=== PATIENT | male | born 1970 | race Hispanic/Latino ===

== ENCOUNTER 2018-01-04 22:48 | Inpatient (IN) | payer BC, OTHER ==
[~2018-01-04] VITALS: Ht 167.6 cm; Wt 117.2 kg
[~2018-01-04 22:48] MED LIST: LEVAQUIN500 MG PO; LEVEMIR 3M100 UNITS/ SQ; METFORMIN HCL500 MG PO; NORCO 7.5-3251 EACH PO; NOVOLOG MI100 UNIT/1 SQ; NOVOLOG100 UNIT/1 SQ; PRINIVIL10 MG PO
[2018-01-04] MEDS ORDERED: LANTUS 3ML100 UNITS/ (23:37)
[2018-01-04] MEDS ORDERED: LISINOPRIL20 MG PO (23:37)
[2018-01-04] MEDS ORDERED: FENOFIBRATE145 MG PO (23:37)
[2018-01-04] MEDS ORDERED: NOVOLOG100 UNITS1 SC (23:37)
[2018-01-04 23:54] LABS: BASOPHILS # (AUTO) 0.1 (0.0-0.1); BASOPHILS % 0.6 % (0.0-1.0); EOSINOPHILS # (AUTO) 0.3 (0.0-0.4); EOSINOPHILS % 2.4 % (0.0-6.0); HEMATOCRIT 31.7 % (38.2-49.6); HEMOGLOBIN 10.3 g/dL (14.0-18.0); LYMPHOCYTES # (AUTO) 2.1 (1.0-3.2); LYMPHOCYTES % 16.4 % (18.0-39.1); MEAN CORPUSCULAR HEMOGLOBIN 27.3 pg (28-32); MEAN CORPUSCULAR HGB CONC 32.5 g/dL (31-35); MEAN CORPUSCULAR VOLUME 84.1 fL (81-99); MONOCYTES % 7.7 % (4.4-11.3); NEUTROPHILS # (AUTO) 9.2 (2.1-6.9); NEUTROPHILS % 72.2 % (38.7-80.0); PLATELET COUNT 345 x10e3/uL (140-360); RED BLOOD COUNT 3.77 x10e6/uL (4.3-5.7); RED CELL DISTRIBUTION WIDTH 13.9 % (11.7-14.4)
[2018-01-05] VITALS (7 sets, daily range): BP systolic 117–142; BP diastolic 67–74
[2018-01-05 00:05] LABS: CLARITY,URINE CLEAR (CLEAR); COLOR,URINE YELLOW (YELLOW); LEUKOCYTE ESTERASE ,URINE TRACE (NEGATIVE); NITRITE,URINE NEGATIVE (NEGATIVE)
[2018-01-05 00:06] LABS: BILIRUBIN,URINE NEGATIVE (NEGATIVE); KETONES,URINE NEGATIVE (NEGATIVE); PROTEIN,URINE DIPSTICK NEGATIVE (NEGATIVE); URINE UROBILINOGEN 1 mg/dL (0.2 - 1)
[2018-01-05 00:09] LABS: ALBUMIN 3.4 g/dL (3.5-5.0); ALBUMIN/GLOBULIN RATIO 0.9 (0.8-2.0); ANION GAP 13.1 mmol/L (8-16); CALCIUM 9.4 mg/dL (8.4-10.2); CREATININE, SERUM 1.91 mg/dL (0.72-1.25); POTASSIUM 4.1 mmol/L (3.5-5.1)
[2018-01-05 00:10] LABS: AMYLASE 45 U/L (25-125); LIPASE 42 U/L (8-78)
[2018-01-05 00:27] LABS: BACTERIA,URINE RARE /HPF; EPITHELIAL CELLS,URINE RARE /LPF
--- NOTE | 2018-01-05 00:36 | Diagnostic Imaging Report ---
EXAM: CT Abdomen and Pelvis WITHOUT contrast INDICATION: Left flank pain. COMPARISON: None. TECHNIQUE: Abdomen and pelvis were scanned utilizing a multidetector helical scanner from the lung base to the pubic symphysis without administration of IV contrast. Absence of intravenous contrast decreases sensitivity for detection of focal lesions and vascular pathology. Coronal and sagittal reformations were obtained. Stone protocol is performed. IV CONTRAST: None. ORAL CONTRAST: Water RADIATION DOSE: Total DLP: 861.67 mGy*cm Estimated effective dose: (DLP x 0.015 x size factor) mSv COMPLICATIONS: None FINDINGS: LINES and TUBES: None. LOWER THORAX: Unremarkable HEPATOBILIARY: The liver is diffuse hypodense compared to the spleen, consistent with diffuse hepatic diffuse hepatic steatosis. No focal hepatic lesions. No biliary ductal dilation. GALLBLADDER: No radio-opaque stones or sludge. No wall thickening. SPLEEN: No splenomegaly. PANCREAS: No focal masses or ductal dilatation. ADRENALS: No adrenal nodules KIDNEYS/URETERS: Mild left hydroureteronephrosis No cystic or solid mass lesions. 1 cm oval stone in the proximal left ureter best seen and measured on series 401, image 65 and also seen on series 3, image 84 GI TRACT: No abnormal distention, wall thickening, or evidence of bowel obstruction. There are post surgical changes of appendectomy. PELVIC ORGANS/BLADDER: Unremarkable. LYMPH NODES: No lymphadenopathy. VESSELS: There is mild atherosclerotic disease in the aorta and major arterial branches. PERITONEUM / RETROPERITONEUM: No free air or fluid. BONES: Unremarkable. SOFT TISSUES: Unremarkable. IMPRESSION: 1. Obstructive 1 cm stone in the proximal left ureter resulting in left renal parenchymal swelling and mild hydroureteronephrosis 2. Diffuse hepatic steatosis. Signed by: Dr. Stanley Caruso M.D. on 01/05/2018 12:32 AM
[2018-01-05] MEDS ORDERED: HYDROMORPHONE 1MG/1ML INJ IV STA (00:42)
[2018-01-05] MEDS ORDERED: ONDANSETRON HCL INJ 2 MG/ML VIAL IV STA (00:42)
[2018-01-05] MEDS ORDERED: ONDANSETRON HCL INJ 2 MG/ML VIAL IV PRN (01:00)
[2018-01-05] MEDS ORDERED: DEXTROSE 50% SYRINGE 50 ML IV PRN (01:00)
[2018-01-05] MEDS: CEFTRIAXONE SOD 1 GM VIAL IV SCH (01:13)
[2018-01-05] MEDS: SODIUM CHLORIDE 0.9% 1000ML 1,000 ML IV SCH ×3 (01:13→21:39)
[2018-01-05 06:12] LABS: BASOPHILS # (AUTO) 0.1 (0.0-0.1); BASOPHILS % 0.5 % (0.0-1.0); EOSINOPHILS # (AUTO) 0.1 (0.0-0.4); EOSINOPHILS % 0.9 % (0.0-6.0); HEMATOCRIT 30.5 % (38.2-49.6); HEMOGLOBIN 9.9 g/dL (14.0-18.0); LYMPHOCYTES # (AUTO) 1.6 (1.0-3.2); LYMPHOCYTES % 13.7 % (18.0-39.1); MEAN CORPUSCULAR HEMOGLOBIN 27.4 pg (28-32); MEAN CORPUSCULAR HGB CONC 32.5 g/dL (31-35); MEAN CORPUSCULAR VOLUME 84.5 fL (81-99); MONOCYTES # (AUTO) 1.2 (0.2-0.8); MONOCYTES % 9.8 % (4.4-11.3); NEUTROPHILS # (AUTO) 8.7 (2.1-6.9); NEUTROPHILS % 74.6 % (38.7-80.0); PLATELET COUNT 309 x10e3/uL (140-360); RED BLOOD COUNT 3.61 x10e6/uL (4.3-5.7); RED CELL DISTRIBUTION WIDTH 13.8 % (11.7-14.4)
[2018-01-05 06:35] LABS: B-TYPE NATRIURETIC PEPTIDE2 25.2 pg/mL (0-100)
[2018-01-05 06:37] LABS: ANION GAP 13.1 mmol/L (8-16); CHOL/HDL RATIO 4.8 (3.9-4.7); CREATININE, SERUM 1.64 mg/dL (0.72-1.25); MAGNESIUM 1.7 MG/DL (1.3-2.1); POTASSIUM 4.1 mmol/L (3.5-5.1)
[2018-01-05 07:06] LABS: FREE T4 (FREE THYROXINE) 1.06 ng/dL (0.9-1.8); THYROID STIMULATING HORMONE 1.113 uIU/mL (0.350-4.940)
[2018-01-05] MEDS ORDERED: INSULIN REGULAR, HUMAN 100 UNIT/1 ML 3ML VIAL SQ SCH (07:30)
[2018-01-05] MEDS ORDERED: HYDRALAZINE HCL 20 MG/ML VIAL IV PRN (07:30)
[2018-01-05] MEDS: INSULIN LISPRO 100 UNIT/1 ML 3ML VIAL SQ SCH ×4 (07:30→21:36)
[2018-01-05] MEDS ORDERED: HYDROCODONE/APAP 5MG-325MG TAB PO PRN (07:30)
[2018-01-05] MEDS ORDERED: ACETAMINOPHEN 325 MG TAB PO PRN (07:30)
--- NOTE | 2018-01-05 07:40 | Consultation ---
DATE OF CONSULTATION: January 05, 2018 UROLOGY CONSULTATION REASON FOR CONSULTATION: Renal colic. HISTORY OF PRESENT ILLNESS: Arley Gonzales is a 47-year-old man without any urological history, except for having had a circumcision in the early . The patient denies previous hematuria, dysuria, urinary tract infection or urolithiasis. Denies any urological problems beyond his circumcision. He had severe right-sided flank pain and reported to the emergency room. He denies nausea, vomiting, hematuria, and dysuria. He denies any fever. PAST MEDICAL AND SURGICAL HISTORY 1. Status post appendectomy. 2. Status post circumcision. 3. Diabetes mellitus. 4. Hypertension. CURRENT MEDICATIONS: Please refer to the MAR. ALLERGIES: NONE KNOWN. SOCIAL HISTORY: The patient denies smoking, ethanol or drug use. The patient works in technical support. FAMILY HISTORY: Noncontributory to the active urological problems. REVIEW OF SYSTEMS: As discussed above in the history of present illness and past medical history, otherwise negative for all systems. PHYSICAL EXAMINATION GENERAL: A healthy-appearing, 47-year-old man lying in bed in no apparent distress. VITAL SIGNS: He is currently afebrile, and the vital signs are currently stable. ABDOMEN: Soft and nondistended. Currently nontender, but the patient has been medicated. Without costovertebral angle tenderness. Kidneys are not palpable without hepatosplenomegaly. No obvious evidence of hernia. GENITOURINARY: Testes are descended bilaterally. Testes are nontender and are bilaterally palpably normal. The patient has a normal circumcised male phallus with normal meatus without any lesions. RECTAL: Digital rectal examination is deferred at the present time. For the remaining physical examination systems, please refer to the admission history and physical on the chart. LABORATORY STUDIES: CT scan of the abdomen and pelvis reveals a 1-cm obstructing proximal ureteral stone with hydronephrosis. No additional stones were noted by the radiologist. White blood cell count is elevated at 11,700, hemoglobin 9.9, platelets 309,000. The patient's creatinine upon admission was 1.91. It is better today at 1.64. His hemoglobin A1c is 7.6. Magnesium is 1.7. Calcium is 9. Urinalysis is significant for 6-10 RBCs and 6-10 WBCs. ASSESSMENT 1. Leukocytosis. 2. Anemia. 3. Acute renal failure, which is improving. 4. Microhematuria. 5. Possible urinary tract infection. 6. Renal colic. 7. Left ureterolithiasis. 8. Left hydroureteronephrosis. PLAN 1. Urine culture and sensitivity on ER urine. 2. IV antibiotics. 3. Hydration. 4. Will post the patient for cystoscopy and stent probably tomorrow, which will hopefully give him a chance to move the stone lower so that we may manage it. Thank you very much for involving us in the care of your patient. We will be happy to follow him along with you, as well as an outpatient. Job#: [id number] MH cc: MATILDE OTERO MD MTDD
[2018-01-05] MEDS: LISINOPRIL 20 MG TAB PO SCH (08:31)
[2018-01-05] MEDS: FENOFIBRATE 145 MG TAB PO SCH (08:32)
[2018-01-05] MEDS: HYDROMORPHONE 1MG/1ML INJ IV PRN ×2 (11:31→22:07)
[2018-01-06] VITALS (8 sets, daily range): BP systolic 112–152; BP diastolic 65–91
[2018-01-06] MEDS: CEFTRIAXONE SOD 1 GM VIAL IV SCH ×2 (00:05→23:20)
[2018-01-06 05:25] LABS: BASOPHILS # (AUTO) 0.1 (0.0-0.1); BASOPHILS % 0.6 % (0.0-1.0); EOSINOPHILS # (AUTO) 0.2 (0.0-0.4); HEMATOCRIT 29.3 % (38.2-49.6); HEMOGLOBIN 9.5 g/dL (14.0-18.0); LYMPHOCYTES # (AUTO) 1.8 (1.0-3.2); LYMPHOCYTES % 17.9 % (18.0-39.1); MEAN CORPUSCULAR HEMOGLOBIN 27.1 pg (28-32); MEAN CORPUSCULAR HGB CONC 32.4 g/dL (31-35); MEAN CORPUSCULAR VOLUME 83.7 fL (81-99); MONOCYTES % 9.2 % (4.4-11.3); NEUTROPHILS # (AUTO) 7.2 (2.1-6.9); NEUTROPHILS % 69.8 % (38.7-80.0); PLATELET COUNT 291 x10e3/uL (140-360); RED CELL DISTRIBUTION WIDTH 13.8 % (11.7-14.4)
[2018-01-06 05:40] LABS: ALBUMIN/GLOBULIN RATIO 0.9 (0.8-2.0); ANION GAP 12.7 mmol/L (8-16); CALCIUM 8.7 mg/dL (8.4-10.2); CREATININE, SERUM 1.77 mg/dL (0.72-1.25); POTASSIUM 4.7 mmol/L (3.5-5.1)
[2018-01-06 05:41] LABS: MAGNESIUM 1.8 MG/DL (1.3-2.1)
[2018-01-06 06:01] LABS: FERRITIN 154.12 ng/mL (21.81-274.66)
[2018-01-06] MEDS: SODIUM CHLORIDE 0.9% 1000ML 1,000 ML IV SCH ×2 (06:54→21:52)
[2018-01-06] MEDS: INSULIN LISPRO 100 UNIT/1 ML 3ML VIAL SQ SCH ×4 (07:30→21:52)
[2018-01-06] MEDS: FENOFIBRATE 145 MG TAB PO SCH (09:00)
[2018-01-06] MEDS: LISINOPRIL 20 MG TAB PO SCH (09:00)
[2018-01-06] MEDS ORDERED: IOPAMIDOL 610MG/1ML 300 MG/ML VIAL IV ONE (11:53)
[2018-01-06] MEDS ORDERED: BELLADONNA/OPIUM 30 MG SUPP RC ONE (11:53)
[2018-01-06] MEDS ORDERED: ACETAMINOPHEN/CODEINE 300MG - 30MG TAB PO PRN (12:45)
[2018-01-06] MEDS: PHENAZOPYRIDINE HCL 100 MG TAB PO SCH ×2 (13:00→18:00)
[2018-01-06] MEDS ORDERED: FENTANYL CITRATE/PF 100MCG/2 ML INJ ONE (16:53)
[2018-01-06] MEDS ORDERED: MIDAZOLAM HCL 2 MG/2 ML VIAL ONE (16:53)
[2018-01-06] MEDS: OXYBUTYNIN CHLORIDE 5 MG TAB PO SCH (17:00)
[2018-01-06] MEDS ORDERED: LIDOCAINE HCL 2% LOCAL INJ 5 ML SDV VIAL INJ ONE (18:35)
[2018-01-06] MEDS ORDERED: PROPOFOL IV EMULSION 10 MG/ML 20 ML VIAL ONE (18:35)
[2018-01-06] MEDS ORDERED: SEVOFLURANE INHAL SOLN 250 ML PEN BTL ONE (18:35)
[2018-01-06] MEDS ORDERED: DEXAMETHASONE SOD PHOS INJ 4 MG/ML VIAL ONE (18:35)
[2018-01-06] MEDS ORDERED: ONDANSETRON HCL INJ 2 MG/ML VIAL ONE (18:35)
[2018-01-07] VITALS: BP 117/58
[2018-01-07 03:03] LABS: BASOPHILS # (AUTO) 0.1 (0.0-0.1); BASOPHILS % 0.5 % (0.0-1.0); EOSINOPHILS % 0.3 % (0.0-6.0); HEMATOCRIT 27.7 % (38.2-49.6); HEMOGLOBIN 9.3 g/dL (14.0-18.0); LYMPHOCYTES # (AUTO) 1.4 (1.0-3.2); LYMPHOCYTES % 13.7 % (18.0-39.1); MEAN CORPUSCULAR HEMOGLOBIN 27.4 pg (28-32); MEAN CORPUSCULAR HGB CONC 33.6 g/dL (31-35); MEAN CORPUSCULAR VOLUME 81.7 fL (81-99); MONOCYTES # (AUTO) 0.8 (0.2-0.8); MONOCYTES % 8.1 % (4.4-11.3); NEUTROPHILS % 76.6 % (38.7-80.0); PLATELET COUNT 329 x10e3/uL (140-360); RED BLOOD COUNT 3.39 x10e6/uL (4.3-5.7); RED CELL DISTRIBUTION WIDTH 13.6 % (11.7-14.4)
[2018-01-07 03:22] LABS: ANION GAP 12.4 mmol/L (8-16); CALCIUM 9.1 mg/dL (8.4-10.2); CREATININE, SERUM 1.45 mg/dL (0.72-1.25); MAGNESIUM 1.9 MG/DL (1.3-2.1); POTASSIUM 4.4 mmol/L (3.5-5.1)
[2018-01-07 04:00] VITALS: BP 144/70
[2018-01-07] MEDS: SODIUM CHLORIDE 0.9% 1000ML 1,000 ML IV SCH (07:13)
[2018-01-07] MEDS: INSULIN LISPRO 100 UNIT/1 ML 3ML VIAL SQ SCH ×2 (07:30→11:30)
[2018-01-07 07:35] VITALS: BP 150/78
[2018-01-07] MEDS ORDERED: TYLENOL # 31 EA PO (08:45)
[2018-01-07] MEDS ORDERED: DITROPAN PO (08:45)
[2018-01-07] MEDS ORDERED: PYRIDIUM100 MG PO (08:45)
[2018-01-07] MEDS: FENOFIBRATE 145 MG TAB PO SCH (09:00)
[2018-01-07] MEDS: LISINOPRIL 20 MG TAB PO SCH (09:00)
[2018-01-07] MEDS: OXYBUTYNIN CHLORIDE 5 MG TAB PO SCH (09:00)
[2018-01-07] MEDS: PHENAZOPYRIDINE HCL 100 MG TAB PO SCH ×2 (09:00→12:41)
[2018-01-07 13:45] VITALS: BP 152/76
--- NOTE | 2018-01-07 13:49 | Discharge Summary ---
ADMISSION DIAGNOSES 1. Urinary tract infection with ureterolithiasis. 2. Hypertension. 3. Type 2 diabetes. 4. Hyperlipidemia. 5. Acute kidney injury versus chronic kidney disease anemia. DISCHARGE DIAGNOSES 1. Urinary tract infection with ureterolithiasis. 2. Hypertension. 3. Type 2 diabetes. 4. Hyperlipidemia. 5. Acute kidney injury versus chronic kidney disease anemia. 6. Rule out urinary tract infection. HISTORY: Patient has a history of pancreatitis, type 2 diabetes, hypertension, hyperlipidemia and surgical history of appendectomy. HOSPITAL COURSE: This 47-year-old male complained of intermittent left flank pain that began last Thursday. By Thursday he had nausea and subjective fever. Thursday all symptoms resolved. Thursday the symptoms returned so he came to the ER. He denies dysuria, hematuria, and CVA tenderness. Upon admission patient was started on IV Rocephin, urology consulted. Home meds resumed for hypertension and hyperlipidemia. His metformin was held and sliding scale insulin began. His A1C was 7.6. On admission his creatinine was 1.91, his GFR was 38, BUN of 29. CT of the abdomen on admission showed obstructive 1 cm stone in the proximal left ureter resulting in left renal parenchymal swelling and mild hydroureteronephrosis, hepatic steatosis. By discharge urine culture was found to be negative. Per urology, patient had a cysto with retrograde, stone manipulation and left stent insertion on 01/06. Patient tolerated procedure well. On day of discharge, WBC 10.41, hemoglobin 9.3, hematocrit 27.7, sodium 137, potassium 4.4, BUN 25, creatinine 1.45, GFR 52. Patient afebrile. Vital signs stable. He will discharge home and follow up with urology in 3 weeks. He will discharge with Tylenol #3, Pyridium and Ditropan per urology recommendation. He will resume home medications. Patient understands discharge instructions and agrees to discharge. Dictated by: Sandra Silverio NP. EVANGELINA LUX MD Job#: [id number] DG
--- NOTE | 2018-03-11 00:36 | Operative Report ---
DATE OF PROCEDURE: January 06, 2018 PREOPERATIVE DIAGNOSES 1. Left hydronephrosis due to stone. 2. Microscopic hematuria. 3. Urinary tract infection. POSTOPERATIVE DIAGNOSES 1. Left hydronephrosis due to stone. 2. Microscopic hematuria. 3. Urinary tract infection. OPERATIONS PERFORMED 1. Cystourethroscopy with bilateral ureteral catheterization and retrograde ureteropyelography (separate procedure performed for the urinary tract infections). 2. Interpretation of retrograde ureteropyelography. 3. Supervision of fluoroscopy. No radiologist present. 4. Cystourethroscopy with insertion of left indwelling ureteral stent (separate procedure performed for the diagnosis of the hydronephrosis). ANESTHESIA: General. COMPLICATIONS: None. CLINICAL SUMMARY: Arley Gonzales is a 47-year-old man with obstructive uropathy. He is brought for the above procedures. He is aware of the risks of bleeding, infection, injury to adjacent structures, need for additional procedures and elected to proceed. OPERATIVE PROCEDURE IN DETAIL: Informed consent was verified. Arley Gonzales was properly identified, taken to the operating room, placed on the cystoscopy table in supine position. Anesthesia was uneventfully begun. The patient was then carefully and gently repositioned in the dorsal lithotomy position with all pressure points well padded. His genitalia were prepared and draped in usual sterile fashion. The 22.5-Azeri cystoscope sheath with a visual obturator in place was atraumatically inserted into the patient's urethra. It was guided down the relatively unremarkable distal urethra through mildly narrow intersphincteric region through the prostate bed which was significant for early BPH with visual obstruction of the median bar. Panendoscopy of the urinary bladder revealed mild trabeculations; but no tumors, no stones and no diverticula. Normally positioned and configured ureteral orifices were identified. Ureteral catheter was used to cannulate each ureter and retrograde ureteropyelograms were performed. INTERPRETATION OF RETROGRADE URETEROPYELOGRAPHY: Contrast was instilled in retrograde fashion bilaterally. There were no tumors, no stones and no diverticula. Unobstructed drainage was observed fluoroscopically on the right hand side. The left hand side exhibited a filling defect in the proximal portion of the ureter. This correlates to the stone noted on CT. With cystoscopic and fluoroscopic guidance, a left-sided indwelling ureteral stent was then placed with a coil placed in the kidney as well as the patient's bladder. The retaining suture was cut short. The patient's bladder was drained. The cystoscope was withdrawn. The patient was uneventfully reversed from anesthesia and taken to the recovery room in stable condition. Explicit postoperative instructions were given. We will plan on ensuring the patient is okay prior to discharge and then we will bring the patient back to the operating room electively as an outpatient to remove his stent, perform left ureteroscopy with laser of stone. Job#: [id number] GE cc:MATILDE OTERO MD
== END 2018-01-07 14:55 | disposition home or self-care (01) | DRG 669 ==
LOC: ER 22:48 → ERHOLD 01-05 01:14 → MED/SURG2 01-05 01:29
PROVIDERS: ADMIT Internal Medicine; ATTEND Internal Medicine
PROC: 0TC78ZZ Extirpation of Matter from Left Ureter, Via Natural or Artificial Opening Endoscopic (ICD-10-PCS; principal; 2018-01-05)
PROC: 0T778DZ Dilation of Left Ureter with Intraluminal Device, Via Natural or Artificial Opening Endoscopic (ICD-10-PCS; 2018-01-05)
PROC: BT141ZZ Fluoroscopy of Kidneys, Ureters and Bladder using Low Osmolar Contrast (ICD-10-PCS; 2018-01-05)
DX: N13.6 Pyonephrosis (principal); N20.1 Calculus of ureter; N17.9 Acute kidney failure, unspecified; N39.0 Urinary tract infection, site not specified; R31.29 Other microscopic hematuria; N18.9 Chronic kidney disease, unspecified; E83.42 Hypomagnesemia; I12.9 Hypertensive chronic kidney disease with stage 1 through stage 4 chronic kidney disease, or unspecified chronic kidney disease; E78.5 Hyperlipidemia, unspecified; Z79.4 Long term (current) use of insulin; K76.0 Fatty (change of) liver, not elsewhere classified; E11.22 Type 2 diabetes mellitus with diabetic chronic kidney disease; D64.9 Anemia, unspecified
CPT/HCPCS: 36415; 74176; 74420; 80048; 80053; 80061; 81001; 82150; 82607; 82728; 82746; 82948; 83036; 83540; 83690; 83735; 83880; 83970; 84439; 84443; 84466; 84550; 85025; 87086; 96374; 96375; 99284; C2617; J0696; J1100; J1170; J2001; J2250; J2405; J7030

== ENCOUNTER 2018-10-22 07:31 | Inpatient (IN) | payer OTHER ==
[~2018-10-22] VITALS: Ht 167.6 cm; Wt 115.7 kg
[~2018-10-22 07:31] MED LIST changes: +DITROPAN PO; +FENOFIBRATE145 MG PO; +LANTUS 3ML100 UNITS/; +LISINOPRIL20 MG PO; +NOVOLOG100 UNITS1 SC; +PYRIDIUM100 MG PO; +TYLENOL # 31 EA PO
[2018-10-22] MEDS ORDERED: KETOROLAC TROMETHAMINE 30 MG/ML VIAL IV NR (08:00)
[2018-10-22] MEDS ORDERED: SODIUM CHLORIDE 0.9% 1000ML 1,000 ML IV ONE (08:00)
[2018-10-22] MEDS ORDERED: DICYCLOMINE HCL 20 MG/2 ML VIAL IM ONE (08:00)
[2018-10-22] MEDS ORDERED: METOCLOPRAMIDE HCL 10 MG/2ML VIAL IV NR (08:00)
[2018-10-22 08:10] LABS: CLARITY,URINE CLEAR (CLEAR); COLOR,URINE YELLOW (YELLOW)
[2018-10-22 08:11] LABS: BILIRUBIN,URINE NEGATIVE (NEGATIVE); KETONES,URINE NEGATIVE (NEGATIVE); LEUKOCYTE ESTERASE ,URINE NEGATIVE (NEGATIVE); NITRITE,URINE NEGATIVE (NEGATIVE); PROTEIN,URINE DIPSTICK 2+ (NEGATIVE); URINE UROBILINOGEN 8 mg/dL (0.2 - 1)
[2018-10-22 08:17] LABS: BASOPHILS # (AUTO) 0.1 (0.0-0.1); BASOPHILS % 0.5 % (0.0-1.0); EOSINOPHILS # (AUTO) 0.1 (0.0-0.4); EOSINOPHILS % 1.3 % (0.0-6.0); HEMATOCRIT 36.3 % (38.2-49.6); HEMOGLOBIN 11.8 g/dL (14.0-18.0); LYMPHOCYTES # (AUTO) 1.2 (1.0-3.2); MEAN CORPUSCULAR HEMOGLOBIN 27.1 pg (28-32); MEAN CORPUSCULAR HGB CONC 32.5 g/dL (31-35); MEAN CORPUSCULAR VOLUME 83.3 fL (81-99); NEUTROPHILS # (AUTO) 8.6 (2.1-6.9); NEUTROPHILS % 77.4 % (38.7-80.0); PLATELET COUNT 301 x10e3/uL (140-360); RED BLOOD COUNT 4.36 x10e6/uL (4.3-5.7); RED CELL DISTRIBUTION WIDTH 14.1 % (11.7-14.4)
[2018-10-22 08:31] LABS: BACTERIA,URINE RARE /HPF; EPITHELIAL CELLS,URINE RARE /LPF
[2018-10-22 08:38] LABS: ALANINE AMINOTRANSFERASE 294 IU/L (0-55); ALBUMIN 2.9 g/dL (3.5-5.0); ALBUMIN/GLOBULIN RATIO 0.6 (0.8-2.0); ALKALINE PHOSPHATASE 302 IU/L (40-150); ANION GAP 13.1 mmol/L (8-16); BLOOD UREA NITROGEN 17 mg/dL (7-26); BUN/CREATININE RATIO 20 (6-25); CALCIUM 9.3 mg/dL (8.4-10.2); CARBON DIOXIDE 26 mmol/L (22-29); CHLORIDE 101 mmol/L (98-107); CREATININE, SERUM 0.84 mg/dL (0.72-1.25); EST GLOMERULAR FILTRATION RATE > 60 ML/MIN (60-); GLUCOSE 206 mg/dL (74-118); POTASSIUM 4.1 mmol/L (3.5-5.1); SODIUM 136 mmol/L (136-145)
--- NOTE | 2018-10-22 08:52 | Diagnostic Imaging Report ---
EXAM: CT Abdomen and Pelvis WITHOUT contrast INDICATION: Right flank pain. COMPARISON: CT abdomen/pelvis 01/04/2018. TECHNIQUE: Abdomen and pelvis were scanned utilizing a multidetector helical scanner from the lung base to the pubic symphysis without administration of IV contrast. Absence of intravenous contrast decreases sensitivity for detection of focal lesions and vascular pathology. Coronal and sagittal reformations were obtained. Stone protocol is performed. IV CONTRAST: None. ORAL CONTRAST: Water RADIATION DOSE: Total DLP: 839.1 mGy*cm Dose modulation, iterative reconstruction, and/or weight based adjustment of the mA/kV was utilized to reduce the radiation dose to as low as reasonably achievable. COMPLICATIONS: None FINDINGS: LINES and TUBES: None. LOWER THORAX: Extensive coronary atherosclerosis (left main, LAD). HEPATOBILIARY: There is mild hepatic steatosis. No focal hepatic lesions. No biliary ductal dilation. GALLBLADDER: Mildly thick-walled with pericholecystic inflammatory changes. No evidence of radiopaque stone. SPLEEN: No splenomegaly. PANCREAS: No focal masses or ductal dilatation. ADRENALS: No adrenal nodules KIDNEYS/URETERS: Previously noted left ureteral stone is no longer present. Interval resolution of left-sided hydronephrosis. No evidence of right-sided hydronephrosis. No evidence of renal stone or mass. GI TRACT: There is mild bowel wall thickening at the hepatic flexure, likely reactive from surrounding gallbladder inflammatory changes. No abnormal distention or evidence of bowel obstruction. Status post appendectomy. PELVIC ORGANS/BLADDER: Unremarkable. LYMPH NODES: No lymphadenopathy. VESSELS: There is mild atherosclerotic disease in the aorta and major arterial branches. PERITONEUM / RETROPERITONEUM: No free air or fluid. No evidence of drainable fluid collection. BONES: Unremarkable. SOFT TISSUES: Unremarkable. IMPRESSION: CT findings suspicious for acute cholecystitis. Right upper quadrant ultrasound suggested for further evaluation. No evidence of renal stone. Mild hepatic steatosis. Extensive coronary atherosclerosis. Signed by: Dr. Shobha Pickard MD on 10/22/2018 8:49 AM
[2018-10-22] MEDS ORDERED: MORPHINE SULFATE INJ 4 MG/ML INJ 1ML IV NR (10:15)
[2018-10-22] MEDS ORDERED: PIPER-TAZ 3.375 GM 50 ML IV ONE (10:15)
[2018-10-22] MEDS ORDERED: SODIUM CHLORIDE 0.9% 1000ML 1,000 ML IV SCH (10:15)
[2018-10-22] MEDS ORDERED: MORPHINE SULFATE INJ 4 MG/ML INJ 1ML IV PRN (10:15)
--- NOTE | 2018-10-22 10:23 | Diagnostic Imaging Report ---
EXAM: Right upper quadrant abdominal ultrasound INDICATION: Cholecystitis. COMPARISON: None. TECHNIQUE: Transverse and longitudinal images of the right upper quadrant abdomen were obtained FINDINGS: Somewhat limited exam due to overlying bowel gas. Liver: Size: 18.0 cm in the right midclavicular line, normal Appearance: Increased echogenicity, smooth contour Mass: No focal masses Gallbladder: Numerous gallstones. No distention, pericholecystic fluid, wall thickening, or reported sonographic Tol[place]'s sign. Gallbladder wall measures 0.3 cm. Bile Ducts: Intrahepatic Ducts: No dilatation Extrahepatic Ducts: Common bile duct measures 0.6 cm, no dilatation Pancreas: Not visualized due to overlying bowel gas. Kidney: The right kidney measures 12.6 cm without evidence of hydronephrosis or stone. Vessels: Aorta: Not well visualized due to overlying bowel gas. Inferior Vena Cava: Visualized portions are normal Main Portal Vein: 1.1 cm, normal size with hepatopetal flow. Free Fluid: No evidence of ascites. IMPRESSION: Somewhat limited study due to overlying bowel gas. Cholelithiasis without specific sonographic evidence of cholecystitis. However, based on the CT appearance, early cholecystitis is suspected. CBD measures at the upper limit of normal at 0.6 cm. No sonographic evidence of intrahepatic biliary ductal dilatation. Suggest correlation with LFTs. Choledocholithiasis is considered less likely but if LFTs are suggestive of obstructive process, MRCP may be considered. Hepatomegaly and hepatic steatosis. Signed by: Dr. Shobha Pickard MD on 10/22/2018 10:19 AM
[2018-10-22] MEDS ORDERED: CRESTOR20 MG PO (10:27)
[2018-10-22] MEDS ORDERED: BASAGLAR SQ (10:27)
[2018-10-22] MEDS ORDERED: DICYCLOMINE HCL 20 MG/2 ML VIAL IM PRN (10:45)
[2018-10-22] MEDS ORDERED: DEXTROSE 50% SYRINGE 50 ML IV PRN ×2 (11:00→17:30)
[2018-10-22] MEDS: PIPER-TAZ 3.375 GM 50 ML IV SCH ×2 (11:03→21:27)
[2018-10-22] MEDS: SODIUM CHLORIDE 0.9% 1000ML 1,000 ML IV SCH ×2 (11:04→18:35)
--- NOTE | 2018-10-22 16:34 | Diagnostic Imaging Report ---
HEPATOBILIARY SCAN INDICATION: Abdominal pain Report: Following the administration of 6.1 mCi of Tc-99m mebrofenin, dynamic images of the abdomen in the anterior projection were obtained through 60 minutes. Perfusion of the liver is normal. Extraction of tracer from the blood pool by the liver parenchyma is normal. No tracer appears within the biliary tract during the 60 minutes of imaging. Impression: Scan evidence of cholestasis. Cannot assess gallbladder filling with absence of tracer in the biliary tract. Signed by: Dr. Carolyn Zavala M.D. on 10/22/2018 4:30 PM
--- NOTE | 2018-10-22 16:51 | NUR ---
Received patient from [employer] via wheelchair. AAOX4 to time, person, place, situation. Respirations even and unlabored. Oriented patient and to room. Instructed to use call light for assistance. Voiced understanding. Will continue to monitor.
[2018-10-22 17:10] VITALS: BP 190/88
[2018-10-22] MEDS: METOCLOPRAMIDE HCL 10 MG/2ML VIAL IV PRN ×2 (17:10→23:16)
[2018-10-22 17:20] VITALS: BP 190/88
--- NOTE | 2018-10-22 17:20 | NUR ---
Moriah Saavedra at bedside. Aware of BP 190/88 and of HIDA scan results
[2018-10-22] MEDS ORDERED: PROPOFOL IV EMULSION 10 MG/ML 20 ML VIAL ONE (17:21)
[2018-10-22] MEDS ORDERED: LIDOCAINE HCL 2% LOCAL INJ 5 ML SDV VIAL INJ ONE (17:21)
[2018-10-22] MEDS ORDERED: NEOSTIGMINE 5 MG/5ML SYR ONE (17:21)
[2018-10-22] MEDS ORDERED: GLYCOPYRROLATE INJ 1MG/ 5 ML SYR ONE (17:21)
[2018-10-22] MEDS ORDERED: SUCCINYLCHOLINE 200 MG/10 ML SYR ONE (17:21)
[2018-10-22] MEDS ORDERED: DESFLURANE 240 ML BTL INH ONE (17:21)
[2018-10-22] MEDS ORDERED: ONDANSETRON HCL INJ 2MG/ML 2ML 2 MG/ML VIAL ONE (17:21)
[2018-10-22] MEDS ORDERED: ROCURONIUM BROMIDE 10 MG/ML 5ML VIAL ONE (17:21)
[2018-10-22] MEDS ORDERED: HYDROMORPHONE 1MG/1ML INJ IV PRN (17:30)
[2018-10-22] MEDS: HYDROMORPHONE 2MG/ML 2 MG/ML ML IV PRN ×2 (18:12→21:51)
[2018-10-22] MEDS: HYDRALAZINE HCL 20 MG/ML VIAL IV PRN (18:13)
--- NOTE | 2018-10-22 19:00 | NUR ---
Report given to oncoming nurse. Resting in bed. No s/s of acute distress noted.
[2018-10-22] MEDS: ONDANSETRON HCL INJ 2MG/ML 2ML 2 MG/ML VIAL IV PRN (19:25)
--- NOTE | 2018-10-22 19:25 | NUR ---
Patient received sitting up in bed. at bedside. AAO x 4. Patient had no complaints of pain. Respirations even and non-labored. Bed locked and in lowest position. Bed rails up x 2. Patient instructed to call for assistance when needed. Call light within reach.
[2018-10-22 19:36] VITALS: BP 118/77
[2018-10-22 19:38] VITALS: BP 164/90
--- NOTE | 2018-10-22 20:31 | NUR ---
Patient informed about recommended surgical procedure----Laparoscopic possible open cholecystectomy. Patient instructed about "NPO" status. Patient verbalized understanding and voluntarily signed "Disclosure and Consent "form.
[2018-10-22] MEDS: INSULIN REGULAR, HUMAN 100 UNIT/1 ML 3ML VIAL SQ SCH (21:00)
[2018-10-23] VITALS (8 sets, daily range): BP systolic 132–199; BP diastolic 69–93
[2018-10-23] MEDS: HYDRALAZINE HCL 20 MG/ML VIAL IV PRN (00:22)
[2018-10-23] MEDS: SODIUM CHLORIDE 0.9% 1000ML 1,000 ML IV SCH ×3 (00:35→12:54)
--- NOTE | 2018-10-23 01:35 | Consultation ---
DATE OF CONSULTATION: 10/22/2018 CHIEF COMPLAINT: Abdominal pain and vomiting. HISTORY OF PRESENT ILLNESS: The patient is a 48-year-old male with progressive abdominal pain in epigastric area for the last 4 days, worsened in the last 24 hours with vomiting. He denies fever, chills, or diarrhea. No past episodes of similar nature. PAST MEDICAL HISTORY: Positive for metabolic syndrome with diabetes, hypertension, hyperlipidemia, and history of renal stones. SURGICAL HISTORY: Positive for appendectomy and stent in the kidney. ALLERGIES: HE HAS NO DRUG ALLERGIES. SOCIAL HABITS: He denies smoking or alcohol abuse. REVIEW OF SYSTEMS: No chest pain or shortness of breath. PHYSICAL EXAMINATION: VITAL SIGNS: Stable, afebrile. GENERAL: He is awake and alert, in moderate to severe discomfort. HEENT: Sclerae anicteric. NECK: Supple. LUNGS: Clear. HEART: Regular rate and rhythm. ABDOMEN: Soft with some guarding in the epigastrium without any rebound tenderness. EXTREMITIES: Without cyanosis, edema. LABORATORY DATA: His creatinine is 0.8. Liver function tests, bilirubin of 1, AST of 476, alkaline phosphatase of 300, lipase 32. The white cell count is 11, hemoglobin of 12. Ultrasound showed gallstone. CT scan showed the same with evidence of cholecystitis. HIDA scan showed nonuptake in the liver, suggestive of cholestasis. MRCP is pending. ASSESSMENT: Cholelithiasis and probable cholecystitis. PLAN: Laparoscopic cholecystectomy indicated once bile duct clearance has been confirmed by MRCP. Faustino Major MD DNL/MODL /[id number]
--- NOTE | 2018-10-23 01:43 | Diagnostic Imaging Report ---
EXAM: Magnetic Resonance Cholangiopancreatography (M.R.C.P.) INDICATION: ^Cholecystitis, Transaminitis COMPARISON: Gallbladder ultrasound 10/22/2018. CT abdomen and pelvis 10/22/2018. TECHNIQUE: Multiplanar, multisequence MRCP was performed, with sequences including axial dual echo and T2 and coronal 2-D SSFSE and [place]iesta, coronal turbo spin-echo T1-weighted scans, [facility] MRCP scans, coronal spin, coronal MPR 2, SMRCP 3D HR, [facility] MRCP [place]. Thin and thick/MRCP sequences with rotational images performed by the technologist at the scan workstation. IV Contrast: None Oral Contrast: None Medications: None COMPLICATIONS: None FINDINGS: LOWER THORAX: Unremarkable. HEPATOBILIARY: No focal hepatic lesions. No intrahepatic biliary dilatation. Common bile duct however demonstrates gradual tapering to the pancreatic head. However, the contour is mildly irregular especially near the distal common bile duct. In the mid common bile duct measures 9.4 mm. No ductal stone. Periportal edema. GALLBLADDER: Filled with gallstones. Mild wall thickening with mildly indistinct ware. SPLEEN: No splenomegaly. PANCREAS: No focal masses or ductal dilatation. ADRENALS: No adrenal nodules KIDNEYS/URETERS: No hydronephrosis. 1.7 cm T2 hyperintense in the superior pole and 1.5 cm cysts in the interpolar region of the left kidney. No stones. GI TRACT: No abnormal distention, wall thickening, or evidence of bowel obstruction. Appendix is not seen. LYMPH NODES: No lymphadenopathy. VESSELS: Unremarkable. PERITONEUM / RETROPERITONEUM: No free air or fluid. BONES: Unremarkable. SOFT TISSUES: Unremarkable. IMPRESSION: 1. Cholelithiasis with wall thickening, concerning for cholecystitis. This is similar to CT findings. 2. No choledocholithiasis. However, common bile duct is distended up to 9.4 mm. There are areas of mild irregularity and focal narrowing in the distal common bile duct near the ampulla. This may represent focal malignancy versus stenosis from passage of stones. Recommend ERCP. Signed by: Dr. Greg Catalan M.D. on 10/23/2018 1:39 AM
[2018-10-23 04:48] LABS: BASOPHILS % 0.2 % (0.0-1.0); HEMATOCRIT 34.4 % (38.2-49.6); HEMOGLOBIN 11.1 g/dL (14.0-18.0); LYMPHOCYTES # (AUTO) 0.7 (1.0-3.2); LYMPHOCYTES % 4.4 % (18.0-39.1); MEAN CORPUSCULAR HEMOGLOBIN 26.8 pg (28-32); MEAN CORPUSCULAR HGB CONC 32.3 g/dL (31-35); MEAN CORPUSCULAR VOLUME 83.1 fL (81-99); MONOCYTES % 6.7 % (4.4-11.3); NEUTROPHILS # (AUTO) 12.9 (2.1-6.9); PLATELET COUNT 299 x10e3/uL (140-360); RED BLOOD COUNT 4.14 x10e6/uL (4.3-5.7); RED CELL DISTRIBUTION WIDTH 14.2 % (11.7-14.4)
[2018-10-23 05:10] LABS: ALANINE AMINOTRANSFERASE 393 IU/L (0-55); ALBUMIN 2.4 g/dL (3.5-5.0); ALBUMIN/GLOBULIN RATIO 0.6 (0.8-2.0); ALKALINE PHOSPHATASE 248 IU/L (40-150); ANION GAP 12.2 mmol/L (8-16); BLOOD UREA NITROGEN 15 mg/dL (7-26); BUN/CREATININE RATIO 19 (6-25); CALCIUM 8.4 mg/dL (8.4-10.2); CARBON DIOXIDE 23 mmol/L (22-29); CHLORIDE 105 mmol/L (98-107); CHOL/HDL RATIO 3.4 (3.9-4.7); CREATININE, SERUM 0.79 mg/dL (0.72-1.25); EST GLOMERULAR FILTRATION RATE > 60 ML/MIN (60-); GLUCOSE 243 mg/dL (74-118); LIPASE 914 U/L (8-78); POTASSIUM 4.2 mmol/L (3.5-5.1); SODIUM 136 mmol/L (136-145)
--- NOTE | 2018-10-23 06:10 | NUR ---
Dr. Major paged to confirm patient's surgery
[2018-10-23] MEDS: PIPER-TAZ 3.375 GM 50 ML IV SCH ×3 (06:19→22:00)
[2018-10-23] MEDS: METOCLOPRAMIDE HCL 10 MG/2ML VIAL IV SCH ×4 (06:19→17:44)
[2018-10-23] MEDS: INSULIN REGULAR, HUMAN 100 UNIT/1 ML 3ML VIAL SQ SCH ×4 (07:30→21:00)
[2018-10-23] MEDS ORDERED: BUPIVACAINE 0.25%/EPI 30ML SDV INJ ONE (07:30)
[2018-10-23] MEDS ORDERED: INSULIN REGULAR, HUMAN 100 UNIT/1 ML 3ML VIAL ONE (08:06)
--- NOTE | 2018-10-23 08:09 | NUR ---
Received patient and alert and responsive, VSS and refused insulin this morning, Patient picked up for procedure this morning and will monitor progress.
[2018-10-23] MEDS ORDERED: MEPERIDINE HCL INJ 25 MG/ML VIAL ONE (11:29)
[2018-10-23] MEDS ORDERED: HYDROMORPHONE 2MG/ML 2 MG/ML ML ONE (11:34)
--- NOTE | 2018-10-23 12:05 | NUR ---
Patient returned form PACU s/o Lap ambar and [address] with MITRA drain and no bleeding, VS-151/72, P83, T96.3, SPO2 94%RA, applied O2 1.5L NC, will monitor, call light within reach, bed alarms in place.
[2018-10-23] MEDS: ONDANSETRON HCL INJ 2MG/ML 2ML 2 MG/ML VIAL IV PRN (14:15)
[2018-10-23] MEDS: HYDROMORPHONE 2MG/ML 2 MG/ML ML IV PRN ×2 (14:15→20:09)
--- NOTE | 2018-10-23 17:55 | NUR ---
Patient OOB and ambulating in the room, pains well managed, voided x2 and MITRA emptied, total 140cc, dressing in place to abd, VSS and tolerated clear liquid diet, no N/V reported to staff, will monitor.
[2018-10-23] MEDS ORDERED: MIDAZOLAM HCL 2 MG/2 ML VIAL ONE (18:22)
[2018-10-23] MEDS ORDERED: FENTANYL CITRATE/PF 100MCG/2 ML INJ ONE (18:22)
--- NOTE | 2018-10-23 19:10 | Operative Report ---
DATE OF PROCEDURE: 10/23/2018 SURGEON: Faustino Major MD PREOPERATIVE DIAGNOSIS: Cholecystitis. POSTOPERATIVE DIAGNOSIS: Acute cholecystitis. OPERATIVE PROCEDURE: Laparoscopic cholecystectomy. SKIN SPECIALIST: None. ANESTHESIA: General, Dr. Clements. INDICATIONS: This is a 48-year-old male with a 1-week history of abdominal pain in epigastrium with ultrasound and CT scan showing evidence of gallstones consistent with cholecystitis and elevated liver enzyme, suggesting bile duct stone; however, MRCP showed no evidence of bile duct stone, but there is dilatation of the distal bile duct. The patient consented at this time for cholecystectomy. Attendant risks discussed. PROCEDURE FINDING: Acutely inflamed cholecystitis with multiple gallstones. DESCRIPTION OF PROCEDURE: The patient was brought to the OR intubated, abdomen prepped with alcohol and draped in sterile fashion. An infraumbilical incision is made and a 10 mm port inserted. Insufflation began under direct vision. Other ports were placed in the midepigastric and right upper quadrant. Gallbladder completely hidden by adhesions from the omentum, which was bluntly dissected off the gallbladder, which is acutely inflamed with thickened wall and distention. Decompression was carried out with suction needle after which the fundus retracted in cephalad direction. We then proceeded to work in the neck of the gallbladder with blunt and sharp dissection using cautery. We peeled the peritoneal layer over the neck of the gallbladder, isolating the cystic artery triple clipped and divided. The cystic duct was quite dilated. Therefore, we proceeded to dissect the gallbladder from the top down, from the liver in a retrograde fashion using blunt and sharp dissection. As we approached the neck of the gallbladder, the infundibulum area of the gallbladder is open revealing several small 2 to 3 mm size yellow gallstones filling the entire gallbladder. The cystic duct is delineated from inside the gallbladder and Endoloop ties of 0 PDS is used to control the cystic duct. The gallbladder detached from the liver and taken out with an Endopouch. Optiview was irrigated with copious saline solution. Hemostasis achieved. A 19-Telugu Charlie was placed in the Aguilar pouch and taken out through the right upper quadrant port site. All other ports removed under direct vision. Fascia closure with 0 Vicryl. Skin closed with subcuticular stitch. The patient is extubated and transported to recovery room. ESTIMATED BLOOD LOSS: 50 mL. Faustino MD DEIDRA Wilkes/NINA /[id number]
--- NOTE | 2018-10-23 19:25 | NUR ---
Patient received sitting up in bed. Family at bedside. AAO x 4 . Patient had no c/o pain/nausea. Respirations even and non-labored. MITRA drain in place; serosanguineous drainage noted. Fall precautions implemented. Patient instructed to call for assistance when needed. Call light within reach.
[2018-10-23] MEDS ORDERED: ACETAMINOPHEN 325 MG TAB PO PRN (20:30)
[2018-10-24] VITALS (8 sets, daily range): BP systolic 142–180; BP diastolic 78–92
[2018-10-24] MEDS: SODIUM CHLORIDE 0.9% 1000ML 1,000 ML IV SCH ×3 (00:25→11:36)
[2018-10-24] MEDS: METOCLOPRAMIDE HCL 10 MG/2ML VIAL IV SCH ×3 (00:38→17:17)
[2018-10-24] MEDS: HYDROMORPHONE 2MG/ML 2 MG/ML ML IV PRN ×3 (03:43→22:05)
[2018-10-24 05:18] LABS: BASOPHILS % 0.2 % (0.0-1.0); EOSINOPHILS # (AUTO) 0.1 (0.0-0.4); EOSINOPHILS % 1.1 % (0.0-6.0); HEMATOCRIT 31.1 % (38.2-49.6); HEMOGLOBIN 9.8 g/dL (14.0-18.0); LYMPHOCYTES % 10.4 % (18.0-39.1); MEAN CORPUSCULAR HEMOGLOBIN 26.4 pg (28-32); MEAN CORPUSCULAR HGB CONC 31.5 g/dL (31-35); MEAN CORPUSCULAR VOLUME 83.8 fL (81-99); NEUTROPHILS # (AUTO) 7.7 (2.1-6.9); NEUTROPHILS % 77.6 % (38.7-80.0); PLATELET COUNT 312 x10e3/uL (140-360); RED BLOOD COUNT 3.71 x10e6/uL (4.3-5.7); RED CELL DISTRIBUTION WIDTH 14.5 % (11.7-14.4)
[2018-10-24 05:39] LABS: ALANINE AMINOTRANSFERASE 346 IU/L (0-55); ALBUMIN 2.2 g/dL (3.5-5.0); ALBUMIN/GLOBULIN RATIO 0.6 (0.8-2.0); ALKALINE PHOSPHATASE 224 IU/L (40-150); ANION GAP 9.8 mmol/L (8-16); BLOOD UREA NITROGEN 17 mg/dL (7-26); BUN/CREATININE RATIO 21 (6-25); CALCIUM 8.1 mg/dL (8.4-10.2); CARBON DIOXIDE 25 mmol/L (22-29); CHLORIDE 104 mmol/L (98-107); CREATININE, SERUM 0.82 mg/dL (0.72-1.25); EST GLOMERULAR FILTRATION RATE > 60 ML/MIN (60-); GLUCOSE 196 mg/dL (74-118); POTASSIUM 3.8 mmol/L (3.5-5.1); SODIUM 135 mmol/L (136-145)
[2018-10-24 06:23] LABS: AMYLASE 89 U/L (25-125); LIPASE 93 U/L (8-78)
[2018-10-24] MEDS: PIPER-TAZ 3.375 GM 50 ML IV SCH ×3 (06:26→22:00)
--- NOTE | 2018-10-24 07:16 | NUR ---
Shift report given to oncoming nurse.
[2018-10-24] MEDS: INSULIN REGULAR, HUMAN 100 UNIT/1 ML 3ML VIAL SQ SCH ×4 (07:30→21:00)
[2018-10-24] MEDS: ONDANSETRON HCL INJ 2MG/ML 2ML 2 MG/ML VIAL IV PRN (11:36)
--- NOTE | 2018-10-24 11:37 | NUR ---
Rounds by surgeon and patient will remain on beriatric clear liquid diet
--- NOTE | 2018-10-24 17:02 | NUR ---
Patient alert, VSS, afebrile, no dyspnea, pains to abd post lap ambar well managed, OOB and ambulated in the room, tolerated clear liq diet, no nausea reported, will monitor.
--- NOTE | 2018-10-24 19:27 | NUR ---
Patient received sitting up in bed. Family at bedside. AAO x 4. No acute distress noted. Call light within reach.
[2018-10-25] VITALS (7 sets, daily range): BP systolic 140–188; BP diastolic 68–88
[2018-10-25] MEDS: METOCLOPRAMIDE HCL 10 MG/2ML VIAL IV SCH ×4 (00:33→17:02)
[2018-10-25] MEDS: SODIUM CHLORIDE 0.9% 1000ML 1,000 ML IV SCH ×3 (02:35→18:11)
[2018-10-25] MEDS: HYDRALAZINE HCL 20 MG/ML VIAL IV PRN ×2 (05:55→21:39)
[2018-10-25] MEDS: PIPER-TAZ 3.375 GM 50 ML IV SCH ×3 (05:56→21:19)
[2018-10-25 06:55] LABS: BASOPHILS # (AUTO) 0.1 (0.0-0.1); BASOPHILS % 0.5 % (0.0-1.0); EOSINOPHILS # (AUTO) 0.2 (0.0-0.4); EOSINOPHILS % 1.8 % (0.0-6.0); HEMATOCRIT 31.8 % (38.2-49.6); HEMOGLOBIN 10.3 g/dL (14.0-18.0); LYMPHOCYTES # (AUTO) 1.4 (1.0-3.2); LYMPHOCYTES % 13.7 % (18.0-39.1); MEAN CORPUSCULAR HEMOGLOBIN 26.8 pg (28-32); MEAN CORPUSCULAR HGB CONC 32.4 g/dL (31-35); MEAN CORPUSCULAR VOLUME 82.8 fL (81-99); MONOCYTES # (AUTO) 0.8 (0.2-0.8); MONOCYTES % 8.1 % (4.4-11.3); NEUTROPHILS # (AUTO) 7.7 (2.1-6.9); NEUTROPHILS % 74.9 % (38.7-80.0); PLATELET COUNT 312 x10e3/uL (140-360); RED BLOOD COUNT 3.84 x10e6/uL (4.3-5.7); RED CELL DISTRIBUTION WIDTH 14.4 % (11.7-14.4)
[2018-10-25 07:22] LABS: ALANINE AMINOTRANSFERASE 256 IU/L (0-55); ALBUMIN 2.2 g/dL (3.5-5.0); ALBUMIN/GLOBULIN RATIO 0.6 (0.8-2.0); ALKALINE PHOSPHATASE 255 IU/L (40-150); ANION GAP 11.7 mmol/L (8-16); BLOOD UREA NITROGEN 12 mg/dL (7-26); BUN/CREATININE RATIO 17 (6-25); CALCIUM 8.5 mg/dL (8.4-10.2); CARBON DIOXIDE 24 mmol/L (22-29); CHLORIDE 101 mmol/L (98-107); CREATININE, SERUM 0.72 mg/dL (0.72-1.25); EST GLOMERULAR FILTRATION RATE > 60 ML/MIN (60-); GLUCOSE 131 mg/dL (74-118); LIPASE 127 U/L (8-78); POTASSIUM 3.7 mmol/L (3.5-5.1); SODIUM 133 mmol/L (136-145)
[2018-10-25] MEDS: INSULIN REGULAR, HUMAN 100 UNIT/1 ML 3ML VIAL SQ SCH ×4 (07:30→20:50)
--- NOTE | 2018-10-25 19:12 | NUR ---
bedside rounds done with oncoming nurse, pt lying in bed call light within reach. visitor at bedside. bed in low and locked position.
[2018-10-25] MEDS: HYDROMORPHONE 2MG/ML 2 MG/ML ML IV PRN (21:39)
[2018-10-26] VITALS (7 sets, daily range): BP systolic 138–173; BP diastolic 63–80
[2018-10-26] MEDS: METOCLOPRAMIDE HCL 10 MG/2ML VIAL IV SCH ×4 (00:49→16:25)
[2018-10-26] MEDS: SODIUM CHLORIDE 0.9% 1000ML 1,000 ML IV SCH ×3 (04:00→19:39)
[2018-10-26 05:16] LABS: BASOPHILS # (AUTO) 0.1 (0.0-0.1); BASOPHILS % 0.5 % (0.0-1.0); EOSINOPHILS # (AUTO) 0.2 (0.0-0.4); EOSINOPHILS % 2.1 % (0.0-6.0); LYMPHOCYTES # (AUTO) 1.2 (1.0-3.2); LYMPHOCYTES % 12.7 % (18.0-39.1); MEAN CORPUSCULAR HEMOGLOBIN 26.2 pg (28-32); MEAN CORPUSCULAR HGB CONC 31.3 g/dL (31-35); MEAN CORPUSCULAR VOLUME 83.8 fL (81-99); MONOCYTES # (AUTO) 0.8 (0.2-0.8); MONOCYTES % 8.6 % (4.4-11.3); NEUTROPHILS # (AUTO) 7.2 (2.1-6.9); PLATELET COUNT 355 x10e3/uL (140-360); RED BLOOD COUNT 3.82 x10e6/uL (4.3-5.7); RED CELL DISTRIBUTION WIDTH 14.4 % (11.7-14.4)
[2018-10-26] MEDS: PIPER-TAZ 3.375 GM 50 ML IV SCH ×3 (05:26→21:22)
[2018-10-26 06:22] LABS: ALANINE AMINOTRANSFERASE 183 IU/L (0-55); ALBUMIN 2.2 g/dL (3.5-5.0); ALBUMIN/GLOBULIN RATIO 0.5 (0.8-2.0); ALKALINE PHOSPHATASE 245 IU/L (40-150); ANION GAP 12.8 mmol/L (8-16); BLOOD UREA NITROGEN 13 mg/dL (7-26); BUN/CREATININE RATIO 17 (6-25); CALCIUM 8.7 mg/dL (8.4-10.2); CARBON DIOXIDE 24 mmol/L (22-29); CHLORIDE 102 mmol/L (98-107); CREATININE, SERUM 0.78 mg/dL (0.72-1.25); EST GLOMERULAR FILTRATION RATE > 60 ML/MIN (60-); GLUCOSE 178 mg/dL (74-118); POTASSIUM 3.8 mmol/L (3.5-5.1); SODIUM 135 mmol/L (136-145)
[2018-10-26] MEDS: INSULIN REGULAR, HUMAN 100 UNIT/1 ML 3ML VIAL SQ SCH ×4 (09:15→21:26)
[2018-10-26] MEDS ORDERED: ONDANSETRON HCL 4 MG ORAL DISINTEGRATING TAB PO PRN (10:15)
--- NOTE | 2018-10-26 15:56 | NUR ---
CASE MANAGEMENT ASSESSMENT Nozzle Cement Sprayer Helper to bedside to discuss plan of care with patient/family. CM/SW role and care transitions discussed. Anticipated discharge plan discussed along with duration of care. CM/SW discussed patients right to make decisions in care. CM/SW work hours given. Patient lives: with and 3 kids Admit/Transfer: thru ED Hospital/ER visits since last admit: 0 POA/Emergency contact: Leticia Gonzales [phone] Current/Previous Home Health: none PCP/Follow-up Care: Dr. Antony Cavazos - PCP; advised pt to follow up with one of his MDs within 5-7 days of discharge. Pt verbalized understanding Current/Previous DME: none Medications (referring to index hospitalization or the first time you were in the hospital) a. Were changes made in your medications when you were in the hospital on [date of index hospitalization]? n/a b. Did you understand the changes? n/a c. Were you able to obtain your new medications right away? n/a d. Were you able to take your medications like the doctor wanted you to? n/a e. Did the hospital give you an accurate, easy to understand list of medications when you left? n/a Scale of 1-10 how comfortable does patient feel with disease management in outpatient settin Other Services: none Employment Status: employed with [employer] Areas of Concerns: recently surgery Referral Needs: none Education Needs: post operative instructions, medical management IMM/LOERA given and signed (if applicable): n/a Goal for discharge: home CM/SW left business card at the bedside with contact information. Name and number was also written on the patients whiteboard. Patient verbalized understanding of discussion. CM will follow-up with ongoing discharge and transition of care needs.
--- NOTE | 2018-10-26 16:30 | NUR ---
Spoke to Froylan Romano, ADJUNCT PHLEBOTOMY INSTRUCTOR with Dr. Epperson regarding dc plan. Pt still with MITRA drain. Pending round by GI/general surgery for recommendations. CM spoke to ILENE Sepluveda who will page Dr. Major and Dr. Suhba Díaz for orders.
[2018-10-26] MEDS: HYDRALAZINE HCL 20 MG/ML VIAL IV PRN (21:27)
[2018-10-27] VITALS: BP 144/66
[2018-10-27] MEDS: METOCLOPRAMIDE HCL 10 MG/2ML VIAL IV SCH ×4 (00:08→16:45)
[2018-10-27 04:00] VITALS: BP 142/67
[2018-10-27] MEDS: PIPER-TAZ 3.375 GM 50 ML IV SCH ×2 (05:57→13:00)
[2018-10-27 07:34] LABS: FERRITIN 114.62 ng/mL (21.81-274.66)
[2018-10-27 07:37] LABS: ALANINE AMINOTRANSFERASE 35 IU/L (0-55); ALBUMIN 3.2 g/dL (3.5-5.0); ALBUMIN/GLOBULIN RATIO 1.1 (0.8-2.0); ALKALINE PHOSPHATASE 83 IU/L (40-150); ANION GAP 11.6 mmol/L (8-16); BLOOD UREA NITROGEN 18 mg/dL (7-26); BUN/CREATININE RATIO 18 (6-25); CALCIUM 8.7 mg/dL (8.4-10.2); CARBON DIOXIDE 24 mmol/L (22-29); CHLORIDE 109 mmol/L (98-107); CREATININE, SERUM 1.02 mg/dL (0.72-1.25); EST GLOMERULAR FILTRATION RATE > 60 ML/MIN (60-); GLUCOSE 92 mg/dL (74-118); LIPASE 20 U/L (8-78); POTASSIUM 3.6 mmol/L (3.5-5.1); SODIUM 141 mmol/L (136-145)
[2018-10-27 08:21] LABS: FOLATE 16.9 ng/mL (7.0-15.4)
[2018-10-27 08:30] VITALS: BP 141/67
[2018-10-27] MEDS: INSULIN REGULAR, HUMAN 100 UNIT/1 ML 3ML VIAL SQ SCH ×3 (08:52→16:45)
[2018-10-27] MEDS: SODIUM CHLORIDE 0.9% 1000ML 1,000 ML IV SCH (08:52)
--- NOTE | 2018-10-27 10:20 | NUR ---
aware of d/c planning. Aware of MITRA drain output. See orders
--- NOTE | 2018-10-27 12:00 | NUR ---
MITRA dressing discontinued as ordered. Dry dressing placed with medipex tape.
[2018-10-27 12:29] VITALS: BP 155/84
--- NOTE | 2018-10-27 13:00 | NUR ---
Patient refuses to be on continuous IV fluids
[2018-10-27 16:17] VITALS: BP 156/81
[2018-10-27] MEDS ORDERED: ULTRAM50 MG PO (18:44)
[2018-10-27] MEDS ORDERED: CIPRO500 MG PO (18:44)
[2018-10-27] MEDS ORDERED: DOXYCYCLINE HY100 MG PO (18:44)
--- NOTE | 2018-10-27 19:19 | NUR ---
Right AC IV discontinued. No signs of infiltration noted. 2x2 gauze and tape placed. Refused wheelchair. AAOX4 to time,person, place, situation. Respirations even and unlabored. Dressing to right lower abdomen (s/p drain removal) clean, dry, and intact. Discharge instructions, rx, and all personal belongings taken with patient. Accompanied by .
--- NOTE | 2018-10-28 02:02 | Discharge Summary ---
HOSPITAL COURSE: Mr. Gonzales is a [id number], who was admitted via the emergency department from home with aggressive abdominal pain, and nausea and vomiting. Per H and P, he has past medical history of diabetes and hypertension. He had recent surgery for detached retina. ADMITTING DIAGNOSES: 1. Likely obstructive cholangitis/bile duct obstruction. 2. Transaminitis. 3. Abdominal pain. 4. Type 2 diabetes mellitus. DISCHARGE DIAGNOSES: Include: 1. Acute cholecystitis, status post laparoscopic cholecystectomy. 2. Transaminitis. 3. Elevated lipase. 4. Controlled hypertension. 5. Controlled type 2 diabetes mellitus. 6. Morbid obesity with BMI 42.7. CONSULTING PHYSICIANS: Included Dr. Adán Díaz and Dr. Faustino Ndiaye. Dr. Major covered for Dr. Ndiaye. HOSPITAL COURSE: The patient had an MRCP, which showed gallstones and cholecystitis. There was irregular narrowing of the distal CBD and the pancreatic head. The resection of the gallbladder and percutaneous endoscopic approach was done by Dr. Major on 10/23/2018. The patient had similar scenarios in the past. He had several days history of upper abdominal pain that had worsened on the last day prior to arrival with associated nausea and vomiting as well as elevated LFTs. After the surgery, the patient was able to ambulate, he had MITRA drain in place and his output was monitored. Leukocytosis was noted postoperatively. On October 23, white blood cell count was 14.6, neutrophils 88. Lipase had been elevated. WBCs gradually normalized and lipase improved. Today on October 26, WBC 9.66, hemoglobin 10, hematocrit 32, platelets 355. Potassium 3.6, BUN 18, creatinine 1.02, GFR greater than 60. Hemoglobin A1c was 9.9% on October 23. On October 27, albumin 3.2, folate 16.9. HIDA scan done on October 22 showed evidence of cholestasis. Gallbladder ultrasound showed cholelithiasis without specific evidence of cholecystitis, hepatomegaly, and hepatic steatosis. CT findings are suspicious for acute cholecystitis. Per the MRCP and ERCP is recommended and the patient is aware that he should follow up with GI in 1 week. He can follow up with Surgery in 1 week as well. Prescription for doxycycline and ciprofloxacin, both for 10 days. He has not really complained of pain very much, prescription for tramadol q.6 hours p.r.n. for abdominal pain is provided. Continue home medications. No change in physical examination. The MITRA drain was discontinued today by the nurse per orders from Surgery. The patient will go home on GI soft diet. Activity level as tolerated. Dictated by Froylan Romano NP Parmjit Epperson MD HWP/MODL /[id number]
== END 2018-10-27 19:26 | disposition home or self-care (01) | DRG 418 ==
LOC: ER 07:31 → ERHOLD 10:47 → MED/SURG2 14:57
PROVIDERS: ADMIT Internal Medicine; ATTEND Internal Medicine
PROC: 0FT44ZZ Resection of Gallbladder, Percutaneous Endoscopic Approach (ICD-10-PCS; principal; 2018-10-23 08:00)
DX: K80.00 Calculus of gallbladder with acute cholecystitis without obstruction (principal); Z68.41 Body mass index [BMI] 40.0-44.9, adult; K82.8 Other specified diseases of gallbladder; E11.9 Type 2 diabetes mellitus without complications; I10 Essential (primary) hypertension; E66.01 Morbid (severe) obesity due to excess calories; G47.33 Obstructive sleep apnea (adult) (pediatric); E78.5 Hyperlipidemia, unspecified; R74.0 Nonspecific elevation of levels of transaminase and lactic acid dehydrogenase [LDH]; K76.0 Fatty (change of) liver, not elsewhere classified; D64.9 Anemia, unspecified; Z87.442 Personal history of urinary calculi; E88.81 Metabolic syndrome and other insulin resistance; Z96.89 Presence of other specified functional implants; Z79.4 Long term (current) use of insulin; Z82.49 Family history of ischemic heart disease and other diseases of the circulatory system; D72.829 Elevated white blood cell count, unspecified
CPT/HCPCS: 36415; 74176; 74181; 76705; 78227; 80053; 80061; 81001; 82150; 82607; 82728; 82746; 82948; 83036; 83540; 83690; 84466; 85025; 85045; 88304; 99284; A9537; J0360; J0500; J1885; J2001; J2175; J2250; J2270; J2405; J2543; J2765; J7030

== ENCOUNTER 2018-12-02 06:40 | Inpatient (IN) | payer OTHER ==
[~2018-12-02] VITALS: Ht 167.6 cm; Wt 123.5 kg
[~2018-12-02 06:40] MED LIST changes: +BASAGLAR SQ; +CIPRO500 MG PO; +CRESTOR20 MG PO; +DOXYCYCLINE HY100 MG PO; +ULTRAM50 MG PO
[2018-12-02] MEDS ORDERED: ONDANSETRON HCL INJ 2MG/ML 2ML 2 MG/ML VIAL IV STA (06:53)
[2018-12-02] MEDS ORDERED: SODIUM CHLORIDE 0.9% 1000ML 1,000 ML IV STA (06:53)
[2018-12-02] MEDS ORDERED: MORPHINE SULFATE INJ 4 MG/ML INJ 1ML IV NR (07:00)
[2018-12-02] MEDS ORDERED: PANTOPRAZOLE 40 MG 10ML VIAL IV NR (07:00)
[2018-12-02 07:19] LABS: BASOPHILS % 0.2 % (0.0-1.0); EOSINOPHILS # (AUTO) 0.1 (0.0-0.4); EOSINOPHILS % 0.4 % (0.0-6.0); HEMATOCRIT 41.7 % (38.2-49.6); LYMPHOCYTES # (AUTO) 0.6 (1.0-3.2); LYMPHOCYTES % 2.9 % (18.0-39.1); MEAN CORPUSCULAR HGB CONC 33.6 g/dL (31-35); MEAN CORPUSCULAR VOLUME 80.5 fL (81-99); MONOCYTES # (AUTO) 1.1 (0.2-0.8); MONOCYTES % 5.9 % (4.4-11.3); NEUTROPHILS # (AUTO) 17.2 (2.1-6.9); PLATELET COUNT 320 x10e3/uL (140-360); RED BLOOD COUNT 5.18 x10e6/uL (4.3-5.7); RED CELL DISTRIBUTION WIDTH 15.3 % (11.7-14.4)
[2018-12-02 07:26] LABS: INR 0.92; PROTHROMBIN TIME 12.8 seconds (11.9-14.5)
[2018-12-02 07:27] LABS: PARTIAL THROMBOPLASTIN TIME 28.9 seconds (23.8-35.5)
[2018-12-02] MEDS ORDERED: IOPAMIDOL 370 MG/ML 200 ML INFUS..BTL INJ ONE (07:27)
[2018-12-02] MEDS ORDERED: SODIUM CHLORIDE 0.9% 50ML 50 ML ONE (07:27)
[2018-12-02 07:33] LABS: ALANINE AMINOTRANSFERASE 651 IU/L (0-55); ALBUMIN 3.6 g/dL (3.5-5.0); ALBUMIN/GLOBULIN RATIO 0.9 (0.8-2.0); ALKALINE PHOSPHATASE 273 IU/L (40-150); AMYLASE 862 U/L (25-125); ANION GAP 19.1 mmol/L (8-16); BLOOD UREA NITROGEN 26 mg/dL (7-26); BUN/CREATININE RATIO 19 (6-25); CALCIUM 9.7 mg/dL (8.4-10.2); CARBON DIOXIDE 21 mmol/L (22-29); CHLORIDE 98 mmol/L (98-107); CREATINE KINASE 79 IU/L (30-200); CREATININE, SERUM 1.34 mg/dL (0.72-1.25); EST GLOMERULAR FILTRATION RATE 57 ML/MIN (60-); GLUCOSE 379 mg/dL (74-118); MAGNESIUM 1.8 MG/DL (1.3-2.1); POTASSIUM 4.1 mmol/L (3.5-5.1); SODIUM 134 mmol/L (136-145)
[2018-12-02 07:34] LABS: CLARITY,URINE SL CLOUDY (CLEAR); KETONES,URINE 1+ (NEGATIVE); LEUKOCYTE ESTERASE ,URINE NEGATIVE (NEGATIVE); NITRITE,URINE NEGATIVE (NEGATIVE); PROTEIN,URINE DIPSTICK 1+ (NEGATIVE)
[2018-12-02] MEDS ORDERED: SODIUM CHLORIDE 0.9% 1000ML 1,000 ML IV ONE (07:45)
[2018-12-02] MEDS ORDERED: DICYCLOMINE HCL 20 MG/2 ML VIAL IM ONE (07:45)
[2018-12-02 07:49] LABS: BILIRUBIN,URINE 2+ (NEGATIVE); URINE UROBILINOGEN 1 mg/dL (0.2 - 1)
[2018-12-02 07:50] LABS: COLOR,URINE AMBER (YELLOW)
[2018-12-02 08:03] LABS: LIPASE 1367 U/L (8-78)
--- NOTE | 2018-12-02 08:05 | Diagnostic Imaging Report ---
EXAM: CHEST SINGLE (PORTABLE), AP Portable DATE: 12/02/2018 Time stamp on exam: 7:34 AM INDICATION: Abdominal pain COMPARISON: None FINDINGS: LINES/TUBES: None LUNGS: No consolidations or edema. Right basilar opacity compatible with subsegmental atelectasis. PLEURA: No effusions or pneumothorax. HEART AND MEDIASTINUM: Normal size and contour. BONES AND SOFT TISSUES: No acute findings. IMPRESSION: No acute thoracic abnormality. Signed by: Dr. Yoandy Camacho DO on 12/02/2018 8:02 AM
[2018-12-02 08:29] LABS: CREATINE KINASE MB < 1.00 ng/mL (0-4.3)
--- NOTE | 2018-12-02 08:42 | NUR ---
POST MORPHINE AND BENTYL ADMINISTRATION, PT STATES PAIN IS 5/10 AND IS NOT NAUSEOUS AT THIS TIME. PT NOT IN DISTRESS AT THIS TIME
--- NOTE | 2018-12-02 09:13 | Diagnostic Imaging Report ---
EXAM: CT ABDOMEN AND PELVIS with IV CONTRAST DATE: 12/02/2018 Time stamp on Exam: 7:57 AM INDICATION: Abdominal pain COMPARISON: None TECHNIQUE: The abdomen and pelvis were scanned using a multidetector helical scanner. Coronal and sagittal reformations were obtained. Routine protocol performed. IV Contrast: 100 cc of Isovue-370 Oral Contrast: None Radiation Dose: Total DLP 832.06 mGy*cm Estimated effective dose: DLP x 0.015 x size factor Technique modification was utilized to maintain the lowest dose possible to the patient. FINDINGS: LOWER THORAX: No consolidations LIVER: No masses BILIARY: The gallbladder is absent with a single clip in the fossa. No ductal dilatation. SPLEEN: No masses PANCREAS: Fluid around the pancreas with low-density attenuation of the pancreas. ADRENALS: No nodules KIDNEYS: Symmetric perfusion. No enhancing masses. No hydronephrosis. There are 2 cysts present in the left kidney measuring 1.6 cm. GI TRACT: Inflammation around the duodenum. VESSELS: Unremarkable PERITONEUM/RETROPERITONEUM: Fluid in the midabdomen, around the pancreas, around the spleen, within both paracolic gutters and in the pelvis. LYMPH NODES: No lymphadenopathy REPRODUCTIVE ORGANS: Unremarkable BLADDER: Unremarkable SOFT TISSUES: Unremarkable BONES: No suspicious bone lesions. Degenerative changes of the lower thoracic spine. IMPRESSION: Findings compatible with acute pancreatitis. Signed by: Dr. Yoandy Camacho DO on 12/02/2018 9:09 AM
[2018-12-02] MEDS ORDERED: SODIUM CHLORIDE FLUSH 10 ML SYR INJ PRN (11:15)
[2018-12-02] MEDS ORDERED: DICYCLOMINE HCL 20 MG/2 ML VIAL IM NR (11:15)
[2018-12-02] MEDS ORDERED: INSULIN REGULAR, HUMAN 100 UNIT/1 ML 3ML VIAL SQ NR (11:15)
[2018-12-02] MEDS ORDERED: SODIUM CHLORIDE 0.9% 1000ML 2,000 ML IV ONE (11:15)
[2018-12-02] MEDS ORDERED: MORPHINE SULFATE INJ 10 MG/ML IV NR (11:30)
[2018-12-02 11:49] LABS: EPITHELIAL CELLS,URINE FEW /LPF; RBC,URINE 0-5 /HPF (0-5)
[2018-12-02] MEDS: SODIUM CHLORIDE 0.9% 1000ML 1,000 ML IV SCH ×2 (15:07→17:47)
[2018-12-02] MEDS: ONDANSETRON HCL INJ 2MG/ML 2ML 2 MG/ML VIAL IV PRN ×2 (15:25→20:27)
[2018-12-02] MEDS: MORPHINE SULFATE INJ 4 MG/ML INJ 1ML IV PRN ×2 (15:25→20:27)
[2018-12-02 15:48] VITALS: BP 142/78
[2018-12-02 16:38] VITALS: BP 165/87
--- NOTE | 2018-12-02 17:10 | NUR ---
LUCIANO PEARSON CUSTODIAN [employer]LET[employer] EQUIPMENT AND NOTIFIED HIGH BP AND BLOOD SUGAR GOT NEW ORDERS
[2018-12-02] MEDS ORDERED: DEXTROSE 50% SYRINGE 50 ML IV PRN (17:15)
[2018-12-02] MEDS: INSULIN REGULAR, HUMAN 100 UNIT/1 ML 3ML VIAL SQ SCH ×2 (17:15→20:27)
--- NOTE | 2018-12-02 19:00 | NUR ---
PT RESTING ON BED BED SIDE REPORT GIVEN TO ONCOMING NURSE
[2018-12-02 20:48] VITALS: BP 148/78
[2018-12-02 20:58] VITALS: BP 148/78
[2018-12-02] MEDS ORDERED: SODIUM CHLORIDE 0.9% 1000ML 1,000 ML IV SCH (23:45)
[2018-12-03] VITALS (8 sets, daily range): BP systolic 134–180; BP diastolic 72–96
[2018-12-03] MEDS: MORPHINE SULFATE INJ 4 MG/ML INJ 1ML IV PRN ×6 (00:38→21:49)
[2018-12-03] MEDS: SODIUM CHLORIDE 0.9% 1000ML 1,000 ML IV SCH ×5 (00:38→17:53)
[2018-12-03] MEDS: ONDANSETRON HCL INJ 2MG/ML 2ML 2 MG/ML VIAL IV PRN ×6 (00:38→21:49)
--- NOTE | 2018-12-03 01:54 | Diagnostic Imaging Report ---
EXAMINATION: MRI Abdomen without contrast/MRCP. TECHNIQUE: Axial T1 nonfat sat in and out of phase, axial T2 fat sat, coronal T2 nonfat sat, axial DWI and ADC MR images of the abdomen were obtained. No intravenous gadolinium was given. Heavily T2-weighted MRCP images were also performed, including thick and thin slab MRCP ASSET and 3-D reconstructions. CLINICAL HISTORY:Pancreatitis COMPARISON: CT abdomen and pelvis 12/02/2018 FINDINGS: LOWER THORAX: Trace left pleural effusion.. LIVER: Hepatic size and contour are normal.. No hepatic signal abnormality. No T2 hyperintense focal hepatic lesions.. BILIARY: Mild central intrahepatic biliary ductal dilation. The common bile duct is moderately dilated, measuring approximately 1.2 cm at the tawny hepatis. Normal luminal contour, with sharp tapering at the region of the head/ampulla. No intraluminal filling defects are identified. No focal masses.. The gallbladder is absent.. PANCREAS: No focal lesion and ductal dilation is noted in this noncontrast exam. Increased T2 signal surrounding the pancreas consistent with inflammatory changes and free fluid secondary to known pancreatitis. SPLEEN: No splenomegaly. ADRENALS: No nodules. KIDNEYS: No hydronephrosis or contour abnormalities in the imaged portion of the kidneys. Stable 1.5 cm T2 hyperintense cyst in the left superior pole. PERITONEUM / RETROPERITONEUM: Perihepatic and perisplenic ascites, which is slightly increased when compared to prior CT.. GI TRACT: Visualized bowel shows no dilation or obstruction. LYMPH NODES: No upper abdominal lymphadenopathy. VESSELS: Normal flow voids are identified. BONES AND SOFT TISSUES: No abnormal bone marrow signal. No soft tissue abnormalities. IMPRESSION: 1. No MR evidence of choledocholithiasis. 2. Mild central intrahepatic biliary ductal dilation and moderate dilation of the common bile duct, with narrowing/sharp tapering at the head/ampulla likely secondary to surrounding pancreatic edema from known pancreatitis. No focal obstructing lesion. 3. Findings consistent with pancreatitis. Unable to assess for pancreatic necrosis given the lack of intravenous contrast. 4. Perihepatic and perisplenic ascites, which is slightly increased when compared to prior CT. 5. Trace left pleural effusion. Signed by: Dr. Sabino Ferguson M.D. on 12/03/2018 4:11 PM
--- NOTE | 2018-12-03 02:30 | NUR ---
Dr. Sandy Díaz here for rounding. Orders received.
[2018-12-03 04:12] LABS: BASOPHILS # (AUTO) 0.1 (0.0-0.1); BASOPHILS % 0.2 % (0.0-1.0); EOSINOPHILS # (AUTO) 0.1 (0.0-0.4); EOSINOPHILS % 0.4 % (0.0-6.0); HEMOGLOBIN 12.8 g/dL (14.0-18.0); LYMPHOCYTES # (AUTO) 0.8 (1.0-3.2); LYMPHOCYTES % 3.6 % (18.0-39.1); MEAN CORPUSCULAR HEMOGLOBIN 26.8 pg (28-32); MEAN CORPUSCULAR HGB CONC 32.8 g/dL (31-35); MEAN CORPUSCULAR VOLUME 81.6 fL (81-99); MONOCYTES # (AUTO) 1.6 (0.2-0.8); NEUTROPHILS # (AUTO) 20.7 (2.1-6.9); NEUTROPHILS % 88.1 % (38.7-80.0); PLATELET COUNT 247 x10e3/uL (140-360); RED BLOOD COUNT 4.78 x10e6/uL (4.3-5.7)
[2018-12-03 04:30] LABS: ALANINE AMINOTRANSFERASE 346 IU/L (0-55); ALBUMIN 2.6 g/dL (3.5-5.0); ALBUMIN/GLOBULIN RATIO 0.8 (0.8-2.0); ALKALINE PHOSPHATASE 201 IU/L (40-150); AMYLASE 520 U/L (25-125); BLOOD UREA NITROGEN 24 mg/dL (7-26); BUN/CREATININE RATIO 27 (6-25); CALCIUM 7.7 mg/dL (8.4-10.2); CARBON DIOXIDE 20 mmol/L (22-29); CHLORIDE 110 mmol/L (98-107); CREATININE, SERUM 0.89 mg/dL (0.72-1.25); EST GLOMERULAR FILTRATION RATE > 60 ML/MIN (60-); GLUCOSE 194 mg/dL (74-118); LIPASE 473 U/L (8-78); SODIUM 139 mmol/L (136-145)
[2018-12-03] MEDS ORDERED: METRONIDAZOLE 250MG/NS 50ML 50 ML IV ONE (04:45)
--- NOTE | 2018-12-03 04:47 | NUR ---
Reported stat labs results to Dr. Sandy Díaz. New orders received.
[2018-12-03] MEDS: METRONIDAZOLE 500MG/NS 100ML 100 ML IV ONE ×2 (04:58→05:56)
[2018-12-03] MEDS: MEROPENEM 1GM 100 ML IV SCH ×4 (04:58→21:15)
[2018-12-03] MEDS ORDERED: CALCIUM GLUCONATE 10% INJ 9.3 MEQ in SODIUM CHLORIDE 0.9% 100 ML 100 ML IV ONE (06:30)
[2018-12-03] MEDS ORDERED: ACETAMINOPHEN 1000 MG/100 ML IV PRN (07:15)
[2018-12-03] MEDS: INSULIN REGULAR, HUMAN 100 UNIT/1 ML 3ML VIAL SQ SCH ×4 (07:30→21:00)
[2018-12-03 07:49] LABS: CHOL/HDL RATIO 3.8 (3.9-4.7)
[2018-12-03] MEDS ORDERED: PRIMAXIN IV SCH (09:00)
[2018-12-03] MEDS: FAMOTIDINE 20 MG/2 ML VIAL IV SCH ×2 (09:32→16:52)
[2018-12-03 18:57] LABS: BASOPHILS # (AUTO) 0.1 (0.0-0.1); BASOPHILS % 0.2 % (0.0-1.0); EOSINOPHILS # (AUTO) 0.1 (0.0-0.4); EOSINOPHILS % 0.2 % (0.0-6.0); HEMATOCRIT 37.1 % (38.2-49.6); HEMOGLOBIN 12.1 g/dL (14.0-18.0); LYMPHOCYTES % 4.4 % (18.0-39.1); MEAN CORPUSCULAR HEMOGLOBIN 27.2 pg (28-32); MEAN CORPUSCULAR HGB CONC 32.6 g/dL (31-35); MEAN CORPUSCULAR VOLUME 83.4 fL (81-99); MONOCYTES # (AUTO) 1.2 (0.2-0.8); MONOCYTES % 5.5 % (4.4-11.3); NEUTROPHILS # (AUTO) 19.4 (2.1-6.9); NEUTROPHILS % 88.8 % (38.7-80.0); PLATELET COUNT 233 x10e3/uL (140-360); RED BLOOD COUNT 4.45 x10e6/uL (4.3-5.7); RED CELL DISTRIBUTION WIDTH 16.5 % (11.7-14.4)
[2018-12-03 20:13] LABS: PLATELET ESTIMATE ADEQUATE; PLATELET MORPHOLOGY COMMENT NORMAL; RBC MORPHOLOGY COMMENT NORMAL
[2018-12-04] VITALS (8 sets, daily range): BP systolic 156–180; BP diastolic 76–86
[2018-12-04] MEDS: HYDRALAZINE HCL 20 MG/ML VIAL IV PRN ×3 (00:39→21:45)
--- NOTE | 2018-12-04 00:39 | NUR ---
PATIENT'S BLOOD PRESSURE CONSISTENTLY RAN HIGH. HIS CURRENT BLOOD PRESSURE IS 169/80, GAVE MEDICATION TO PATIENT FOR BLOOD PRESSURE. WILL RECHECK AND CONTINUE TO MONITOR.
[2018-12-04] MEDS: ONDANSETRON HCL INJ 2MG/ML 2ML 2 MG/ML VIAL IV PRN ×3 (01:45→17:06)
[2018-12-04] MEDS: MORPHINE SULFATE INJ 4 MG/ML INJ 1ML IV PRN ×2 (01:45→08:02)
[2018-12-04] MEDS: SODIUM CHLORIDE 0.9% 1000ML 1,000 ML IV SCH ×3 (02:25→21:40)
[2018-12-04 05:20] LABS: BASOPHILS % 0.2 % (0.0-1.0); EOSINOPHILS % 0.2 % (0.0-6.0); HEMATOCRIT 36.9 % (38.2-49.6); HEMOGLOBIN 11.7 g/dL (14.0-18.0); LYMPHOCYTES % 5.3 % (18.0-39.1); MEAN CORPUSCULAR HEMOGLOBIN 26.7 pg (28-32); MEAN CORPUSCULAR HGB CONC 31.7 g/dL (31-35); MEAN CORPUSCULAR VOLUME 84.2 fL (81-99); MONOCYTES # (AUTO) 1.1 (0.2-0.8); MONOCYTES % 5.8 % (4.4-11.3); NEUTROPHILS # (AUTO) 16.9 (2.1-6.9); NEUTROPHILS % 87.6 % (38.7-80.0); PLATELET COUNT 228 x10e3/uL (140-360); RED BLOOD COUNT 4.38 x10e6/uL (4.3-5.7); RED CELL DISTRIBUTION WIDTH 16.5 % (11.7-14.4)
[2018-12-04] MEDS: MEROPENEM 1GM 100 ML IV SCH ×3 (05:34→21:40)
[2018-12-04 05:46] LABS: ANION GAP 13.3 mmol/L (8-16); BLOOD UREA NITROGEN 22 mg/dL (7-26); BUN/CREATININE RATIO 25 (6-25); CALCIUM 8.3 mg/dL (8.4-10.2); CARBON DIOXIDE 20 mmol/L (22-29); CHLORIDE 112 mmol/L (98-107); CREATININE, SERUM 0.88 mg/dL (0.72-1.25); EST GLOMERULAR FILTRATION RATE > 60 ML/MIN (60-); GLUCOSE 234 mg/dL (74-118); LIPASE 138 U/L (8-78); MAGNESIUM 1.8 MG/DL (1.3-2.1); POTASSIUM 4.3 mmol/L (3.5-5.1); SODIUM 141 mmol/L (136-145)
[2018-12-04 06:08] LABS: FREE T4 (FREE THYROXINE) 0.94 ng/dL (0.9-1.8); THYROID STIMULATING HORMONE 0.453 uIU/mL (0.350-4.940)
[2018-12-04] MEDS: FAMOTIDINE 20 MG/2 ML VIAL IV SCH ×2 (08:05→17:08)
[2018-12-04] MEDS: INSULIN REGULAR, HUMAN 100 UNIT/1 ML 3ML VIAL SQ SCH ×4 (08:06→21:52)
[2018-12-04] MEDS ORDERED: AMLODIPINE BESYLATE 10 MG TAB PO SCH (09:00)
[2018-12-04] MEDS ORDERED: HYDROCODONE/APAP 5MG-325MG TAB PO PRN ×2 (09:15→18:15)
[2018-12-04] MEDS ORDERED: MORPHINE SULFATE INJ 4 MG/ML INJ 1ML IV PRN ×2 (09:15→18:15)
--- NOTE | 2018-12-04 11:54 | Diagnostic Imaging Report ---
EXAM: Complete Abdominal Ultrasound INDICATION: Acute pancreatitis. Bowel distention. COMPARISON: MRCP 12/03/2018. CT abdomen and pelvis 12/02/2018. TECHNIQUE: Transverse and longitudinal images of the upper abdomen were obtained. FINDINGS: Liver: Size: 17.4 cm in the right midclavicular line, mildly enlarged Appearance: Increase echogenicity, smooth contour Mass: No focal masses Spleen: Size: 14.1 cm in length, mildly enlarged Echogenicity: Normal Mass: No focal masses Gallbladder: Surgically removed. Bile Ducts: Intrahepatic Ducts: No dilatation Extrahepatic Ducts: Common bile duct measures 0.3 cm, no dilatation Pancreas: Incompletely visualized due to overlying bowel gas, but no abnormality identified involving the visualized portions of the pancreas. Right Kidney: Size: 11.2 x 7.9 x 6.2 cm Echogenicity: Normal Parenchymal thickness: Normal Collecting System: No hydronephrosis Stone: None Cyst/Mass: None Left Kidney: Size: 12.7 x 7.5 x 7.4 cm Echogenicity: Normal Parenchymal thickness: Normal Collecting System: No hydronephrosis Stone: None Cyst/Mass: None Vessels: Aorta: Visualized portions are normal. 2.2 cm. Inferior Vena Cava: Visualized portions are normal Main Portal Vein: 1.0 cm, normal size with hepatopetal flow. Free Fluid: No ascites or pleural effusion IMPRESSION: Limited exam secondary to soft tissue attenuation of ultrasound beams. 1. Liver upper limits of normal size with steatosis. 2. Gallbladder is surgically absent. Normal common bile duct. 3. Pancreas is obscured. 4. Mild splenomegaly. Signed by: Dr. Greg Catalan M.D. on 12/04/2018 11:50 AM
--- NOTE | 2018-12-04 20:15 | Consultation ---
DATE OF CONSULTATION: REASON FOR CONSULTATION: Pancreatitis. Thank you so much for asking me see this patient. HISTORY OF PRESENT ILLNESS: This patient is a 48-year-old white Latin-Maur[place] male with history of obesity, history of pancreatitis, last time was in 2012. He has a history of cholecystectomy, comes in with 4 days of abdominal pain, hiccups, not feeling well. Some nausea and some vomiting before he came here, now resolved, but he continued to have some hiccups. The patient had a history of cholecystectomy. He also has a history of diabetes mellitus type 2, hyperlipidemia, obesity, hypertension. The patient comes in with hiccups and abdominal discomfort, not feeling well for 2 days before he came here. He was admitted on December 02, 2018. GI was consulted. The patient is currently lying in bed, complaining of hiccups with abdominal discomfort and pain. His CAT scan done here showed pancreatitis. He had an MRCP, which showed no evidence of choledocholithiasis. His blood cultures, no growth for 24 hours. His white count is 19.03, hemoglobin 11.7, hematocrit 36. Sodium 141, potassium 4.3, creatinine 0.8. PAST MEDICAL HISTORY: Obesity, hypertension, and diabetes mellitus, and pancreatitis. PAST SURGICAL HISTORY: Cholecystectomy. MEDICATIONS: The patient is currently on acetaminophen, insulin, Zofran, meropenem, and Crestor. ALLERGIES: NKA. SOCIAL HISTORY: There is no smoking, drug abuse, or alcohol abuse. FAMILY HISTORY: Hypertension. REVIEW OF SYSTEMS: GENERAL: He is just feeling fair, feeling feverish. GI: There is some nausea and abdominal discomfort in the periumbilical area. : There is no urgency. No frequency. SKIN: There is no rash. JOINT: No erythema or edema or swelling. NEURO: No seizure activity, otherwise negative. PHYSICAL EXAMINATION: GENERAL: He is currently alert, oriented, does not seem to be in acute distress. VITAL SIGNS: Stable, currently afebrile. HEENT: Normocephalic. Not icteric. NECK: Supple. No JVD. No lymphadenopathy. No thyromegaly. CHEST: Clear bilateral. HEART: S1, S2. No S3, S4, or murmur. ABDOMEN: Soft, distended. Diffuse discomfort. No rebound. EXTREMITIES: No edema. SKIN: There is no rash. NEURO: No local finding. LABORATORY DATA: On admission above reviewed. IMPRESSION: 1. Pancreatitis. MRCP negative. Leukocytosis is secondary to pancreatitis. I agree with meropenem. I agree with n.p.o. Continue to observe the patient clinically. 2. Obesity. 3. Diabetes mellitus type 2. 4. Hypertension. 5. Hyperlipidemia. 6. Hypocalcemia. 7. Leukocytosis secondary to pancreatitis. Continue with meropenem. Recheck CBC. Recheck Chem panel. N.p.o. for now. We will follow with you. MD LORNA Aguillon/MODL /[id number]
[2018-12-04] MEDS: CRESTOR 10MG PO SCH (21:40)
[2018-12-05] VITALS (8 sets, daily range): BP systolic 148–163; BP diastolic 70–76
--- NOTE | 2018-12-05 02:30 | NUR ---
NOTIFIED DR PINEDO PATIENT HAS BEEN HAVING ABDOMINAL PAIN AFTER EATING. NEW ORDER FOR PT TO BE NPO
[2018-12-05] MEDS: ONDANSETRON HCL INJ 2MG/ML 2ML 2 MG/ML VIAL IV PRN ×3 (03:10→20:35)
[2018-12-05 05:11] LABS: BASOPHILS # (AUTO) 0.1 (0.0-0.1); BASOPHILS % 0.4 % (0.0-1.0); EOSINOPHILS # (AUTO) 0.1 (0.0-0.4); EOSINOPHILS % 0.8 % (0.0-6.0); HEMATOCRIT 32.8 % (38.2-49.6); HEMOGLOBIN 10.8 g/dL (14.0-18.0); LYMPHOCYTES # (AUTO) 1.4 (1.0-3.2); LYMPHOCYTES % 7.8 % (18.0-39.1); MEAN CORPUSCULAR HEMOGLOBIN 27.1 pg (28-32); MEAN CORPUSCULAR HGB CONC 32.9 g/dL (31-35); MEAN CORPUSCULAR VOLUME 82.2 fL (81-99); MONOCYTES # (AUTO) 1.3 (0.2-0.8); NEUTROPHILS # (AUTO) 15.1 (2.1-6.9); NEUTROPHILS % 83.1 % (38.7-80.0); PLATELET COUNT 265 x10e3/uL (140-360); RED BLOOD COUNT 3.99 x10e6/uL (4.3-5.7); RED CELL DISTRIBUTION WIDTH 16.5 % (11.7-14.4)
[2018-12-05] MEDS: MEROPENEM 1GM 100 ML IV SCH ×3 (05:12→20:19)
[2018-12-05] MEDS: SODIUM CHLORIDE 0.9% 1000ML 1,000 ML IV SCH ×2 (05:12→09:04)
[2018-12-05] MEDS: METOPROLOL TARTRATE INJ 1 MG/ML VIAL IV PRN ×3 (05:12→20:20)
[2018-12-05 05:30] LABS: ALANINE AMINOTRANSFERASE 124 IU/L (0-55); ALBUMIN 2.2 g/dL (3.5-5.0); ALKALINE PHOSPHATASE 134 IU/L (40-150); ANION GAP 13.6 mmol/L (8-16); BILIRUBIN,DIRECT 0.7 mg/dL (0.0-0.5); BLOOD UREA NITROGEN 14 mg/dL (7-26); BUN/CREATININE RATIO 18 (6-25); CALCIUM 8.2 mg/dL (8.4-10.2); CARBON DIOXIDE 20 mmol/L (22-29); CHLORIDE 107 mmol/L (98-107); CREATININE, SERUM 0.77 mg/dL (0.72-1.25); EST GLOMERULAR FILTRATION RATE > 60 ML/MIN (60-); GLUCOSE 212 mg/dL (74-118); MAGNESIUM 1.9 MG/DL (1.3-2.1); POTASSIUM 3.6 mmol/L (3.5-5.1); SODIUM 137 mmol/L (136-145)
[2018-12-05 07:59] LABS: AMYLASE 59 U/L (25-125); LIPASE 53 U/L (8-78)
[2018-12-05] MEDS ORDERED: LISINOPRIL 20 MG TAB PO SCH (09:00)
[2018-12-05] MEDS: FAMOTIDINE 20 MG/2 ML VIAL IV SCH ×2 (09:36→17:50)
[2018-12-05] MEDS: INSULIN REGULAR, HUMAN 100 UNIT/1 ML 3ML VIAL SQ SCH ×4 (09:36→21:00)
[2018-12-05] MEDS: LISINOPRIL 20 MG TAB PO SCH (09:36)
[2018-12-05] MEDS: MORPHINE SULFATE INJ 4 MG/ML INJ 1ML IV PRN ×2 (11:42→20:35)
[2018-12-05] MEDS: HYDRALAZINE HCL 20 MG/ML VIAL IV PRN (11:55)
[2018-12-05] MEDS ORDERED: LACTULOSE SYRUP 20 GM/30 ML UDC PO ONE (14:15)
[2018-12-05] MEDS: CRESTOR 10MG PO SCH (20:19)
[2018-12-05] MEDS: ACETAMINOPHEN 325 MG TAB PO PRN (20:35)
[2018-12-06] VITALS (9 sets, daily range): BP systolic 144–167; BP diastolic 68–78
[2018-12-06] MEDS: SODIUM CHLORIDE 0.9% 1000ML 1,000 ML IV SCH ×3 (01:10→23:30)
[2018-12-06 05:21] LABS: BASOPHILS # (AUTO) 0.1 (0.0-0.1); BASOPHILS % 0.4 % (0.0-1.0); EOSINOPHILS # (AUTO) 0.2 (0.0-0.4); EOSINOPHILS % 1.2 % (0.0-6.0); HEMOGLOBIN 11.5 g/dL (14.0-18.0); LYMPHOCYTES # (AUTO) 1.5 (1.0-3.2); LYMPHOCYTES % 7.9 % (18.0-39.1); MEAN CORPUSCULAR HEMOGLOBIN 26.5 pg (28-32); MEAN CORPUSCULAR HGB CONC 31.9 g/dL (31-35); MEAN CORPUSCULAR VOLUME 82.9 fL (81-99); MONOCYTES # (AUTO) 1.6 (0.2-0.8); MONOCYTES % 8.6 % (4.4-11.3); NEUTROPHILS # (AUTO) 14.7 (2.1-6.9); NEUTROPHILS % 80.4 % (38.7-80.0); PLATELET COUNT 291 x10e3/uL (140-360); RED BLOOD COUNT 4.34 x10e6/uL (4.3-5.7); RED CELL DISTRIBUTION WIDTH 16.4 % (11.7-14.4)
[2018-12-06] MEDS: MEROPENEM 1GM 100 ML IV SCH ×3 (05:27→21:08)
[2018-12-06 05:41] LABS: ANION GAP 14.3 mmol/L (8-16); BLOOD UREA NITROGEN 14 mg/dL (7-26); BUN/CREATININE RATIO 18 (6-25); CALCIUM 8.5 mg/dL (8.4-10.2); CARBON DIOXIDE 21 mmol/L (22-29); CHLORIDE 104 mmol/L (98-107); CREATININE, SERUM 0.78 mg/dL (0.72-1.25); EST GLOMERULAR FILTRATION RATE > 60 ML/MIN (60-); GLUCOSE 218 mg/dL (74-118); LIPASE 101 U/L (8-78); POTASSIUM 3.3 mmol/L (3.5-5.1); SODIUM 136 mmol/L (136-145)
[2018-12-06 06:03] LABS: ALBUMIN 2.3 g/dL (3.5-5.0); BILIRUBIN,DIRECT 0.6 mg/dL (0.0-0.5)
--- NOTE | 2018-12-06 07:00 | NUR ---
BEDSIDE SHIFT RECEIVED FROM HYDRO OPERATOR RN. BED IS LOCKED AND AT LOWEST POSITION. BED ALARM IS ON. CALL ANAYA WITH IN REACH.PT DENIES NEEDS AT THIS TIME.
[2018-12-06] MEDS: INSULIN REGULAR, HUMAN 100 UNIT/1 ML 3ML VIAL SQ SCH ×4 (07:30→21:00)
[2018-12-06] MEDS: FAMOTIDINE 20 MG/2 ML VIAL IV SCH ×2 (08:13→17:20)
[2018-12-06] MEDS: LISINOPRIL 20 MG TAB PO SCH (08:20)
[2018-12-06] MEDS: METOPROLOL TARTRATE INJ 1 MG/ML VIAL IV PRN (12:07)
--- NOTE | 2018-12-06 14:10 | NUR ---
CALLED KATHIE BARKLEY AND INFORMED PATIENT POTASSIUM LEVEL 3.3. NO NEW ORDERS RECEIVED.
[2018-12-06] MEDS: HYDRALAZINE HCL 20 MG/ML VIAL IV PRN (14:28)
[2018-12-06] MEDS ORDERED: POTASSIUM CHLORIDE 20 MEQ TAB CR PO ONE (16:36)
[2018-12-06] MEDS: MORPHINE SULFATE INJ 4 MG/ML INJ 1ML IV PRN (18:05)
--- NOTE | 2018-12-06 19:00 | NUR ---
BEDSIDE SHIFT REPORT GIVEN TO BABCOCK TESTER RN. PT DENIED FURTHER NEEDS.
[2018-12-06] MEDS: CRESTOR 10MG PO SCH (20:38)
[2018-12-06] MEDS: ACETAMINOPHEN 325 MG TAB PO PRN (21:08)
[2018-12-07] VITALS (9 sets, daily range): BP systolic 130–157; BP diastolic 59–78
[2018-12-07] MEDS: MORPHINE SULFATE INJ 4 MG/ML INJ 1ML IV PRN ×4 (02:25→21:42)
[2018-12-07 05:12] LABS: BASOPHILS # (AUTO) 0.1 (0.0-0.1); BASOPHILS % 0.4 % (0.0-1.0); EOSINOPHILS # (AUTO) 0.2 (0.0-0.4); EOSINOPHILS % 1.2 % (0.0-6.0); HEMATOCRIT 30.2 % (38.2-49.6); HEMOGLOBIN 9.6 g/dL (14.0-18.0); LYMPHOCYTES # (AUTO) 1.7 (1.0-3.2); LYMPHOCYTES % 9.3 % (18.0-39.1); MEAN CORPUSCULAR HEMOGLOBIN 26.4 pg (28-32); MEAN CORPUSCULAR HGB CONC 31.8 g/dL (31-35); MEAN CORPUSCULAR VOLUME 83.2 fL (81-99); MONOCYTES # (AUTO) 1.7 (0.2-0.8); MONOCYTES % 9.8 % (4.4-11.3); NEUTROPHILS # (AUTO) 13.7 (2.1-6.9); PLATELET COUNT 271 x10e3/uL (140-360); RED BLOOD COUNT 3.63 x10e6/uL (4.3-5.7); RED CELL DISTRIBUTION WIDTH 16.2 % (11.7-14.4)
[2018-12-07] MEDS: MEROPENEM 1GM 100 ML IV SCH ×2 (05:38→20:00)
[2018-12-07 05:52] LABS: ANION GAP 12.3 mmol/L (8-16); BLOOD UREA NITROGEN 11 mg/dL (7-26); BUN/CREATININE RATIO 16 (6-25); CALCIUM 7.9 mg/dL (8.4-10.2); CARBON DIOXIDE 21 mmol/L (22-29); CHLORIDE 103 mmol/L (98-107); CREATININE, SERUM 0.69 mg/dL (0.72-1.25); EST GLOMERULAR FILTRATION RATE > 60 ML/MIN (60-); GLUCOSE 227 mg/dL (74-118); LIPASE 38 U/L (8-78); MAGNESIUM 1.7 MG/DL (1.3-2.1); PHOSPHORUS 1.4 MG/DL (2.3-4.7); POTASSIUM 3.3 mmol/L (3.5-5.1); SODIUM 133 mmol/L (136-145)
--- NOTE | 2018-12-07 06:17 | Diagnostic Imaging Report ---
EXAMINATION: CHEST SINGLE (PORTABLE) COMPARISON: Chest x-ray 12/02/2018 INDICATION: Shortness of breath ^W DISCUSSION: Frontal view of the chest obtained at 0542 hours. HEART AND MEDIASTINUM: The cardiomediastinal silhouette is stable LINES: None. LUNGS: Low lung lines with increasing right perihilar and left basilar atelectasis. Vascular markings are normal. PLEURA: There is blunting of the left lateral costophrenic angle. No pneumothorax. BONES AND SOFT TISSUES: No focal osseous lesion. The soft tissues are normal. IMPRESSION: Increasing right perihilar and left basilar atelectasis or infiltrate. Small left pleural effusion cannot be excluded. Signed by: Dr. Willie Regalado MD on 12/07/2018 6:13 AM
--- NOTE | 2018-12-07 07:00 | NUR ---
BEDSIDE SHIFT RECEIVED FROM SENIOR ERP CONSULTANT RN. BED IS LOCKED AND AT LOWEST POSITION. BED ALARM IS ON. CALL ANAYA WITH IN REACH.PT DENIES NEEDS AT THIS TIME.
[2018-12-07] MEDS: INSULIN REGULAR, HUMAN 100 UNIT/1 ML 3ML VIAL SQ SCH ×4 (07:30→21:00)
[2018-12-07] MEDS: SODIUM CHLORIDE 0.9% 1000ML 1,000 ML IV SCH ×2 (08:08→17:03)
[2018-12-07] MEDS: FAMOTIDINE 20 MG/2 ML VIAL IV SCH (08:08)
[2018-12-07] MEDS: LISINOPRIL 20 MG TAB PO SCH (08:15)
[2018-12-07 08:43] LABS: LYMPHOCYTES % (MANUAL) 13 % (19-48); MONOCYTES % (MANUAL) 11 % (3.4-9.0); NEUTROPHILS % (MANUAL) 76 % (40-74); PLATELET ESTIMATE ADEQUATE; PLATELET MORPHOLOGY COMMENT NORMAL; RBC MORPHOLOGY COMMENT NORMAL
--- NOTE | 2018-12-07 10:45 | NUR ---
CALLED PRINCE RUBIA VÁZQUEZ, AND INFORMED PT LAB LEVELS, SODIUM,POTASSIUM AND CALCIUM. NO NEW ORDERS RECEIVED.
[2018-12-07] MEDS ORDERED: MAGNESIUM SULFATE 2GM/50ML 50 ML IV ONE ×2 (11:00→11:15)
[2018-12-07] MEDS ORDERED: POTASSIUM PHOSPHATE 30 MM in SODIUM CHLORIDE 0.9% 250ML 250 ML IV SCH ×4 (11:00)
[2018-12-07] MEDS ORDERED: ONDANSETRON HCL 4 MG ORAL DISINTEGRATING TAB PO PRN (16:30)
[2018-12-07] MEDS: FAMOTIDINE 20 MG TAB PO SCH (17:19)
--- NOTE | 2018-12-07 18:43 | NUR ---
Nutrition Intervention Note RD Recommendation(s) for Physician: -Rec advancing to low fat/ ADA diet as medically appropriate -Rec Ensure Clear BID to increase protein-calorie intake -RD provided education on low fat diet on 12/07 Plan of Care: RD following, monitoring for tolerance and adequacy, ONS, diet education Nutrition reason for involvement: NPO/ Clear liquid x [address] Assessment 12/07: 48yo M, who was admitted for abdominal pain. Pt was discussed during AM rounds. No plan to advance his diet today. Visit pt in the room. Pt tolerating clear liquid diet. No complains of nausea or vomiting. No complains of chewing or swallowing difficulty. Weight stable. Rec Ensure Clear as pt has been on NPO/ clear liquid for 5 days; pt was agreeable with plan. RD also provided diet education on low fat diet. All questions have been answered. Principal Problems/Diagnoses: acute pancreatitis PMH: obesity, pancreatitis, cholecystectomy, HTN, DM GI: abdomen soft, non-tender, flatus present Skin: no pressure wound Labs: (12/07) Na 133 L, K 3.3 L, creatinine 0.69 L, Glucose 220 250 H, Ca 7.9 L, Phos 1.4 L Meds: pepcid, insulin Ht: 66in Wt: 250lb BMI: 40.4kg/m2 IBW: 142lb Malnutrition Evaluation (12/07) The patient does not meet criteria for a specified degree of malnutrition at this time. Will re-evaluate at follow-up as appropriate. Energy intake: <50% of estimated energy requirements for >5 days Weight loss: N/A Fat loss: None Muscle loss: None Nutrition Prescription (Diet Order): clear liquid Estimated Nutritional Needs: Calories: 1430 1625kcal(22-25kcal/kg/d) Weight used : IBW Protein: 98 - 163(1.5-2.5g/kg/d) Weight used: IBW Diet Adequacy: Not meeting calorie needs, Not meeting protein needs Diet Education Needs Assessment: Diet education indicated and patient agreeable. Learner(s): pt Time spent: 25minutes Barriers: No barriers identified. Cultural/Language Modifications: No cultural/language modifications noted. Pt and speak Turkish. Readiness: Pt eager to learn. Method: Explanation, Handouts Topics: Pancreatitis nutrition therapy low fat diet Understanding/Compliance: Expect good understanding/compliance from pt. Will benefit from reinforcement. All questions have been answered. Nutrition Care Level: mod Nutrition Diagnosis: Inadequate energy intake related to pancreatitis as evidenced by NPO/ clear liquid x 5 days. Goal: Patient will meet 75-100% of estimated needs by follow up Progress: N/A Interventions: Modified diet, Commercial beverage Monitoring/Evaluation: Total energy intake, Total protein intake, Modified diet, Liquid supplement, Weight change Signed: Claudine Loya MS, RD, LD
--- NOTE | 2018-12-07 19:00 | NUR ---
BEDSIDE SHIFT REPORT GIVEN TO CAGE SHIFT MANAGER RN. PT DENIED FURTHER NEEDS.
--- NOTE | 2018-12-07 20:00 | NUR ---
PT IN BED, FAMILY AT BEDSIDE, CALL LIGHT IN REACH, IV INFUSING, NO DISTRESS NOTED, VS STABLE, C/O PAIN TO BACK AREA, BM TODAY, NO EDEMA NOTED,
[2018-12-07] MEDS: CRESTOR 10MG PO SCH (21:00)
[2018-12-08] VITALS (7 sets, daily range): BP systolic 142–157; BP diastolic 67–75
[2018-12-08] MEDS: SODIUM CHLORIDE 0.9% 1000ML 1,000 ML IV SCH ×3 (03:03→23:03)
[2018-12-08] MEDS: MEROPENEM 1GM 100 ML IV SCH ×3 (03:48→21:44)
[2018-12-08 05:19] LABS: BASOPHILS # (AUTO) 0.1 (0.0-0.1); BASOPHILS % 0.5 % (0.0-1.0); EOSINOPHILS # (AUTO) 0.2 (0.0-0.4); EOSINOPHILS % 1.3 % (0.0-6.0); HEMATOCRIT 30.9 % (38.2-49.6); HEMOGLOBIN 10.1 g/dL (14.0-18.0); LYMPHOCYTES # (AUTO) 1.5 (1.0-3.2); LYMPHOCYTES % 9.2 % (18.0-39.1); MEAN CORPUSCULAR HEMOGLOBIN 26.7 pg (28-32); MEAN CORPUSCULAR HGB CONC 32.7 g/dL (31-35); MEAN CORPUSCULAR VOLUME 81.7 fL (81-99); MONOCYTES # (AUTO) 1.7 (0.2-0.8); MONOCYTES % 10.3 % (4.4-11.3); NEUTROPHILS # (AUTO) 12.4 (2.1-6.9); NEUTROPHILS % 75.4 % (38.7-80.0); PLATELET COUNT 287 x10e3/uL (140-360); RED BLOOD COUNT 3.78 x10e6/uL (4.3-5.7); RED CELL DISTRIBUTION WIDTH 15.9 % (11.7-14.4)
--- NOTE | 2018-12-08 07:02 | NUR ---
PT IN BED, NO DISTRESS NOTED, IV INFUSING, CALL LIGHT IN REACH, NO OTHER NEEDS
[2018-12-08 07:24] LABS: MAGNESIUM 1.9 MG/DL (1.3-2.1)
[2018-12-08 07:40] LABS: ALANINE AMINOTRANSFERASE 45 IU/L (0-55); ALBUMIN/GLOBULIN RATIO 0.5 (0.8-2.0); ALKALINE PHOSPHATASE 118 IU/L (40-150); ANION GAP 13.3 mmol/L (8-16); BLOOD UREA NITROGEN 9 mg/dL (7-26); BUN/CREATININE RATIO 13 (6-25); CARBON DIOXIDE 22 mmol/L (22-29); CHLORIDE 100 mmol/L (98-107); CREATININE, SERUM 0.67 mg/dL (0.72-1.25); EST GLOMERULAR FILTRATION RATE > 60 ML/MIN (60-); GLUCOSE 240 mg/dL (74-118); POTASSIUM 3.3 mmol/L (3.5-5.1); SODIUM 132 mmol/L (136-145)
[2018-12-08] MEDS: FAMOTIDINE 20 MG TAB PO SCH (09:15)
[2018-12-08] MEDS: LISINOPRIL 20 MG TAB PO SCH (09:15)
[2018-12-08] MEDS: INSULIN REGULAR, HUMAN 100 UNIT/1 ML 3ML VIAL SQ SCH (09:16)
[2018-12-08] MEDS ORDERED: POTASSIUM CHLORIDE 20 MEQ TAB CR PO STA (10:04)
[2018-12-08] MEDS ORDERED: MORPHINE SULFATE INJ 4 MG/ML INJ 1ML IV PRN (10:30)
[2018-12-08] MEDS: METOCLOPRAMIDE HCL 10 MG/2ML VIAL IV SCH ×3 (12:16→21:44)
[2018-12-08] MEDS: HYDROCODONE/APAP 5MG-325MG TAB PO PRN ×2 (12:16→18:25)
[2018-12-08] MEDS: AMLODIPINE BESYLATE 10 MG TAB PO SCH (12:16)
[2018-12-08] MEDS: INSULIN LISPRO 100 UNIT/1 ML 3ML VIAL SQ SCH ×3 (12:17→21:00)
--- NOTE | 2018-12-08 19:00 | NUR ---
Report given to oncoming nurse of patient's status. NO s/s of acute distress noted. Family at bedside.
--- NOTE | 2018-12-08 19:20 | NUR ---
Patient received sitting up in bed. Family at bedside. AAO x 4. No c/o pain. No signs of respiratory distress. Fall precautions implemented. Patient instructed to call for assistance when needed. Call light within reach.
[2018-12-08] MEDS: CRESTOR 10MG PO SCH (21:44)
[2018-12-09 00:17] VITALS: BP 128/59
[2018-12-09] MEDS: MEROPENEM 1GM 100 ML IV SCH ×2 (04:14→12:00)
[2018-12-09] MEDS: HYDROCODONE/APAP 5MG-325MG TAB PO PRN ×2 (04:15→12:40)
[2018-12-09 05:22] LABS: BASOPHILS # (AUTO) 0.1 (0.0-0.1); BASOPHILS % 0.5 % (0.0-1.0); EOSINOPHILS # (AUTO) 0.2 (0.0-0.4); EOSINOPHILS % 1.6 % (0.0-6.0); HEMATOCRIT 28.4 % (38.2-49.6); HEMOGLOBIN 9.2 g/dL (14.0-18.0); LYMPHOCYTES # (AUTO) 1.4 (1.0-3.2); MEAN CORPUSCULAR HEMOGLOBIN 26.5 pg (28-32); MEAN CORPUSCULAR HGB CONC 32.4 g/dL (31-35); MEAN CORPUSCULAR VOLUME 81.8 fL (81-99); MONOCYTES # (AUTO) 1.2 (0.2-0.8); MONOCYTES % 8.5 % (4.4-11.3); NEUTROPHILS % 76.4 % (38.7-80.0); PLATELET COUNT 302 x10e3/uL (140-360); RED BLOOD COUNT 3.47 x10e6/uL (4.3-5.7); RED CELL DISTRIBUTION WIDTH 15.8 % (11.7-14.4)
[2018-12-09 05:23] VITALS: BP 139/73
[2018-12-09 05:53] LABS: ANION GAP 9.3 mmol/L (8-16); BLOOD UREA NITROGEN 9 mg/dL (7-26); BUN/CREATININE RATIO 12 (6-25); CARBON DIOXIDE 25 mmol/L (22-29); CHLORIDE 100 mmol/L (98-107); CREATININE, SERUM 0.76 mg/dL (0.72-1.25); EST GLOMERULAR FILTRATION RATE > 60 ML/MIN (60-); GLUCOSE 314 mg/dL (74-118); MAGNESIUM 1.7 MG/DL (1.3-2.1); POTASSIUM 3.3 mmol/L (3.5-5.1); SODIUM 131 mmol/L (136-145)
[2018-12-09] MEDS: PANTOPRAZOLE SOD 40 MG TABEC PO SCH ×2 (05:53→08:30)
--- NOTE | 2018-12-09 07:00 | NUR ---
Shift report given to oncoming nurse
[2018-12-09 08:05] VITALS: BP 129/59
[2018-12-09] MEDS: LISINOPRIL 20 MG TAB PO SCH (08:30)
[2018-12-09] MEDS: METOCLOPRAMIDE HCL 10 MG/2ML VIAL IV SCH ×2 (08:30→12:00)
[2018-12-09] MEDS: SODIUM CHLORIDE 0.9% 1000ML 1,000 ML IV SCH (08:30)
[2018-12-09] MEDS: AMLODIPINE BESYLATE 10 MG TAB PO SCH (08:30)
[2018-12-09] MEDS: INSULIN LISPRO 100 UNIT/1 ML 3ML VIAL SQ SCH ×2 (08:30→12:01)
[2018-12-09 09:28] LABS: EOSINOPHILS % (MANUAL) 2 % (0-7); LYMPHOCYTES % (MANUAL) 10 % (19-48); METAMYELOCYTES % (MANUAL) 2 % (0-0); MONOCYTES % (MANUAL) 9 % (3.4-9.0); MYELOCYTES % (MANUAL) 1 % (0-0); NEUTROPHILS % (MANUAL) 75 % (40-74)
[2018-12-09] MEDS ORDERED: POTASSIUM CHLORIDE 20 MEQ TAB CR PO STA (10:01)
[2018-12-09 10:59] LABS: HYPOCHROMASIA SLIGHT; PLATELET ESTIMATE ADEQUATE; PLATELET MORPHOLOGY COMMENT NORMAL; RBC MORPHOLOGY COMMENT NORMAL
[2018-12-09 11:13] VITALS: BP 153/70
--- NOTE | 2018-12-09 12:55 | NUR ---
Right AC IV discontinued. No signs of infiltration noted. 2x2 gauze and tape placed. Taken to personal car by PCT. AAOX4 to time, person, place, situation. Respirations even and unlabored. Discharge instructions and all personal belongings taken with patient. No rx available at this time.
== END 2018-12-09 12:55 | disposition home or self-care (01) | DRG 439 ==
LOC: ER 06:55 → ERHOLD 11:17 → MED/SURG2 14:58
PROVIDERS: ADMIT Internal Medicine; ATTEND Internal Medicine
DX: K85.90 Acute pancreatitis without necrosis or infection, unspecified (principal); Z68.41 Body mass index [BMI] 40.0-44.9, adult; E11.9 Type 2 diabetes mellitus without complications; E66.9 Obesity, unspecified; E83.51 Hypocalcemia
CPT/HCPCS: 36415; 71045; 74177; 74181; 76700; 80048; 80053; 80061; 80076; 81001; 82150; 82550; 82553; 82948; 83036; 83690; 83735; 83880; 84100; 84439; 84443; 84484; 85025; 85610; 85730; 86803; 87040; 87086; 93005; 99284; C1769; J0360; J0500; J0610; J2270; J2405; J2765; J3475; J7030; J7050; Q9967